=== PATIENT | female | born 1965 | race Caucasian/White ===

== ENCOUNTER → 2021-06-20 09:55 | Outpatient (CLI) | payer OTHER, SELFPAY ==
--- NOTE | 2021-06-20 10:02 | RAD_ITS ---
STUDY: X-RAY CHEST REASON FOR EXAM: Female, 56 years old. Technologist Notes [facility] up posterior chest wall on right side RALES R BASE -- COPY DR PARRA TECHNIQUE: XR Chest 2 Views COMPARISON: None FINDINGS: There is no demonstrated pleural abnormality. There is a right Port-A-Cath and/or mediport in place. The tip is in the superior vena cava. Diffuse sclerosis of the thoracic vertebral bodies. Expansile lesions visualized in the left ribs. These combined findings are concerning for metastatic disease. Normal size heart. Normal mediastinum and valeria. Normal visualized pulmonary arteries. There is atherosclerotic calcification of the aortic arch with tortuosity. There are diffuse degenerative changes of the visualized thoracic spine. There is degenerative osteoarthritis of the bilateral shoulders. There is no demonstrated abnormality of the visualized soft tissue structures of the upper abdomen. RAD/Chest PA and Lateral IMPRESSION: Diffuse sclerosis of the thoracic vertebral bodies. Expansile lesions visualized in the left ribs. These combined findings are concerning for metastatic bone disease. Electronically Signed: Jesus Lerner MD at 16:52 EST , Service support ,
== END ==
PROVIDERS: PCP Family Medicine; Referring Provider Family Medicine; Visit Provider Family Medicine
DX: R09.89 Other specified symptoms and signs involving the circulatory and respiratory systems (principal)
CPT/HCPCS: 71046

== ENCOUNTER → 2021-06-21 12:25 | Outpatient (CLI) | payer OTHER, SELFPAY ==
[2021-06-21 15:03] LABS: Absolute Lymphocyte Count 1.27 X10^3/uL (0.83-4.51); Absolute Neutrophil Count 3.6 X10^3/uL (2.0-7.7); Basophil# 0.01 X10^3/uL; Basophil% 0.2 % (0-1); Hematocrit 26.1 % (37-47); Hemoglobin 8.2 g/dL (12.0-15.0); Lymphocyte # 1.27 X10^3/ul (0.83-4.51); Mean Corp Hgb Conc 31.4 g/dL (32-36); Mean Corpuscular Hgb 28.8 pg (27.0-32.0); Mean Corpuscular Volume 91.6 fL (81-99); Mean Platelet Vol. 9.2 fl (6.2-12.0); Monocyte# 0.45 X10^3/uL; Monocyte% 8.2 % (0-10); NRBC Flagged by Analyzer 0.9 % (0-5); Neutrophil # 3.59 X10^3/uL (2.7-7.7); Neutrophil % 65.2 % (47-70); Platelet Count 122 K/mm3 (150-450); RBC Distribution Width CV 17.5 % (11.6-14.6); RBC Distribution Width SD 57.1 fl (35.1-43.9); RET-HE 33.1 pg (30-35); Red Blood Count 2.85 M/mm3 (4.2-5.4); Reticulocyte Count 4.21 % (0.5-1.5); White Blood Count 5.5 K/mm3 (4.4-11.0)
[2021-06-21 16:04] LABS: ALB/GLOB Ratio 0.5 RATIO (0.9-2.4); AST(SGOT) 33 U/L (15-37); Alanine Aminotransfer ALT/SGPT 20 U/L (13-56); Albumin, Serum 2.1 g/dL (3.2-5.0); Alkaline Phosphatase 138 U/L (45-117); Anion Gap 7 (5-15); BUN 15 mg/dL (7-18); BUN/Creat Ratio 18.5 RATIO (10-20); Calcium,Total 8.5 mg/dL (8.5-10.1); Chloride 102 mmol/L (98-107); Creatinine, Serum 0.81 mg/dL (0.55-1.02); EST Glomerular Filtration Rate 78 mL/min (>60); Est Glom Filt Rate - Afr Amer 94 mL/min (>60); Ferritin 1967 ng/mL (8-252); Free T3 0.8 pg/mL (2.18-3.98); Globulin 3.9 g/dL (2.2-4.2); Glucose 112 mg/dL (74-106); Iron Binding Capacity,Total 233 ug/dL (250-450); Potassium 4.5 mmol/L (3.5-5.1); Sodium Level 133 mmol/L (136-145); T4 Free Direct 1.12 ng/dL (0.76-1.46); Thyroid Stim Hormone (TSH) 1.59 uIU/mL (0.358-3.74)
[2021-06-23 10:51] LABS: Haptoglobin 424 mg/dL (33-346)
== END ==
PROVIDERS: PCP Family Medicine; Referring Provider Family Medicine; Visit Provider Family Medicine
DX: D64.9 Anemia, unspecified (principal); C50.919 Malignant neoplasm of unspecified site of unspecified female breast; E03.9 Hypothyroidism, unspecified; K29.00 Acute gastritis without bleeding
CPT/HCPCS: 36415; 80053; 82728; 82746; 83010; 83550; 84439; 84443; 84481; 85025; 85045

== ENCOUNTER → 2021-06-27 08:59 | Outpatient (CLI) | payer OTHER, SELFPAY | PROVIDERS: PCP Family Medicine; Visit Provider Family Medicine | DX: Z20.828 Contact with and (suspected) exposure to other viral communicable diseases (principal) | CPT/HCPCS: 87633; 87635; U0005; U0003 ==

== ENCOUNTER 2021-07-08 15:55 | Inpatient (IN) | payer OTHER, SELFPAY ==
[2021-07-08] VITALS (10 sets, daily range): BP systolic 88–142; BP diastolic 41–97; PULSE 84–109; RESP 7–20; TEMP 36.2–37.3; O2SAT 89–106; BMI 37.2; BMI 41.8
--- NOTE | 2021-07-08 17:00 | EKG12_ITS ---
Test Reason : SOB Blood Pressure : / mmHG Vent. Rate : 108 BPM Atrial Rate : 107 BPM P-R Int : 000 ms QRS Dur : 070 ms QT Int : 360 ms P-R-T Axes : 000 006 040 degrees QTc Int : 482 ms Somatic/Motion Artifact Sinus vs ectopic atrial rhythm Nonspecific ST and T wave abnormality Abnormal ECG Confirmed by AVILA GARCIA, BETTY ([id number]), television news video editor KELSEY PETERS ([id number]) on 07/09/2021 10:16:50 AM Referred By: EFRA Confirmed By:BETTY GRAMAJO MD
--- NOTE | 2021-07-08 17:00 | RAD_ITS ---
STUDY: X-RAY CHEST REASON FOR EXAM: Female, 56 years old. Technologist Notes PNEUMONIA FOR 2 WEEKS. INCREASING SOB. cough TECHNIQUE: XR Chest 1 View COMPARISON: 06.20.21 FINDINGS: There is no demonstrated pleural abnormality. There is bilateral infiltrate. There is a right Port-A-Cath and/or mediport in place. The tip is in the superior vena cava. Normal size heart. Normal mediastinum and valeria. Normal visualized pulmonary arteries. There is atherosclerotic calcification of the aortic arch with tortuosity. There are diffuse degenerative changes of the visualized thoracic spine. There is degenerative osteoarthritis of the bilateral shoulders. There is no demonstrated abnormality of the visualized soft tissue structures of the upper abdomen. RAD/Chest 1 View (Portable) IMPRESSION: Bilateral pneumonia. Electronically Signed: Jesus Lerner MD at 17:30 EST , Service support ,
--- NOTE | 2021-07-08 17:17 | CT_ITS ---
EXAM: CT ANGIOGRAPHY CHEST WITHOUT AND WITH INTRAVENOUS CONTRAST CLINICAL INDICATION: chest pain TECHNIQUE: Helically acquired angiography images were obtained of the chest without and with intravenous contrast. This CT exam was performed using one or more of the following dose reduction techniques: automated exposure control, adjustment of the mA and/or kV according to patient size, and/or use of iterative reconstruction technique. This report was created using [employer] report generation technology. MIP reconstructed images were created and reviewed. CONTRAST: IV 100mL [id number] COMPARISON: None. FINDINGS: PULMONARY ARTERIES: No demonstrated pulmonary embolism or arterial dissection. AORTA: Unremarkable. Normal in caliber. No evidence of dissection. GREAT VESSELS OF AORTIC ARCH: Unremarkable. Normal in caliber. No evidence of dissection. LUNGS AND PLEURAL SPACES: There is bilateral pneumonia. There are bilateral pleural effusions. No mass. HEART: Unremarkable. Heart size is normal. No pericardial effusion. No signs of right heart strain, ratio of right ventricle to left ventricle measures less than 1. MEDIASTINUM: Unremarkable. No mediastinal or hilar adenopathy. Esophagus is unremarkable. No hiatal hernia. THYROID: Unremarkable. No thyroid lesions. BONES/JOINTS: Lytic and sclerotic lesions throughout the thoracic vertebrae, ribs, and sternum. There are degenerative findings of the thoracic spine. TUBES, LINES AND DEVICES: There is a right Port-A-Cath and/or mediport in place. The tip is in the superior vena cava. CT/CTA Chest W/WO Contrast IMPRESSION: 1. Diffuse metastatic bone disease. 2. No demonstrated pulmonary embolism or arterial dissection. 3. There is bilateral pneumonia. 4. There are bilateral pleural effusions. Electronically Signed: Jesus Lerner MD at 18:37 EST , Service support ,
--- NOTE | 2021-07-08 17:18 | EDS_ITS ---
HPI History of Present Illness Chief Complaint: Shortness of Breath Narrative Narrative: 56-year-old female with history of metastatic breast cancer who is originally from [place]. She is established with Dr. Fox and Dr. Pearson in [place]. She is currently doing immunotherapy which they believe is not working. She is scheduled for a bone scan tomorrow. It was noted by her primary care physician that she had a slight cough last week and she was put on Omnicef and azithromycin after having a chest x-ray which showed pneumonia. She tested negative for COVID-19 with a PCR. Patient states at that point she really was not symptomatic. She denies any fevers or chills. She does states she has intermittent chest pain due to metastatic cancer in her ribs and her chest. She does have history of PE and is currently on 2.5 mg twice daily of Eliquis for this. She is on the low-dose because she has history of gastric ulcer and anemia with GI bleed. Patient denies any black or bloody stools. It is noted that her hemoglobin was slightly lower at 8.2 at 06/21/2021. Patient states that previously when she lived in [place] she was hospitalized about 3 weeks ago and had received multiple units of blood for this. She states she is had an upper endoscopy recently which showed that she did not have any more bleeding. She presents today because her daughter noticed she was hypoxic at home down into the 30s and then came up into the 90s and the highest noted pulse oximeter reading was 94. Patient does not wear home oxygen at home. She denies fever, chills, body aches, change in taste or smell. She does state that she has no history of cardiac disease but notes that she has dyspnea on exertion. She is orthopneic. She has lower extremity edema which is worsening. [facility] Medical History Breast cancer Breast cancer metastasized to bone Hypothyroid Home Medications lorazepam 1 mg PO DAILY 07/08/21 [History Last Taken Unknown] morphine 15 mg PO BID 07/08/21 [History Last Taken Unknown] ondansetron 8 mg PO PRN PRN 07/08/21 [History Last Taken Unknown] oxycodone 10 mg PO PRN PRN 07/08/21 [History Last Taken Unknown] Allergy/AdvReac Type Severity Reaction Status Date / Time meperidine [From Demerol] AdvReac Vomiting Verified 07/08/21 15:59 Social History Smoking Status: Never smoker ROS ROS ED Constitutional Constitutional ED: Denies chills or fever(s) Eyes Eyes: Denies change in vision ENT ENT ED: Denies rhinorrhea or sore throat Cardiovascular Cardiovascular: Reports chest pain and orthopnea Respiratory/Chest Respiratory/Chest: Reports dyspnea, dyspnea on exertion and orthopnea Gastrointestinal Gastrointestinal: Denies abdominal pain, nausea or vomiting Genitourinary Genitourinary ED: Denies dysuria or hematuria Integumentary Denies Abrasions or rash Neurologic Neurologic: Denies headache(s) or paresthesias Psychiatric Psychiatric: Denies anxiety or depression EXAM Physical Exam Const Vital Signs: 07/08/21 15:56 07/08/21 15:59 07/08/21 16:44 Temperature 97.2 F L Temperature Source Temporal Pulse Rate 107 H Respiratory Rate 18 20 H Respiratory Effort Short of Breath Labored Accessory Muscle Use Respiratory Depth Normal Respiratory Pattern Tachypnea Blood Pressure 130/97 H Blood Pressure Mean 108 Pulse Ox 89 97 99 Oxygen Delivery Method Room Air Nasal Cannula Nasal Cannula Oxygen Flow Rate (L/min) 2 07/08/21 17:00 07/08/21 17:56 07/08/21 18:00 Temperature 98.8 F 99.1 F 99.2 F H Temperature Source Temporal Temporal Temporal Pulse Rate 107 H 104 H Respiratory Rate 17 16 Respiratory Effort Respiratory Depth Respiratory Pattern Blood Pressure 88/41 L 133/71 H Blood Pressure Mean 56 91 Pulse Ox 100 106 98 Oxygen Delivery Method Nasal Cannula Room Air Nasal Cannula Oxygen Flow Rate (L/min) 07/08/21 20:07 07/08/21 20:31 Temperature 98.1 F 98.1 F Temperature Source Oral Oral Pulse Rate 84 84 Respiratory Rate 7 L 7 L Respiratory Effort Respiratory Depth Respiratory Pattern Blood Pressure 142/84 H 142/84 H Blood Pressure Mean 103 103 Pulse Ox 95 95 Oxygen Delivery Method Nasal Cannula Oxygen Flow Rate (L/min) Positive obese General Appearance ED: NAD and pallor Nutritional Appearance: obese HEENT Reports moist mucous membranes atraumatic Eyes PERRL and EOMs intact bilaterally Neck no lymphadenopathy and supple Resp normal respiratory effort and clear to auscultation bilaterally Cardio regular rate and regular rhythm GI non-tender and non-distended Palpation: soft Neuro oriented x3 and CN's II-XII intact bilaterally Sensorium / Orientation: alert Psych mental status grossly normal Thought Process: normal thought process Skin General Skin Exam: pallor; Negative for jaundice Rashes: no rashes MDM MDM MDM Narrative Medical decision making narrative: Patient presenting with history of pneumonia treated outpatient with azithromycin and cefdinir. She is not had any fevers but she is short of breath. She admits to lower extremity edema as well. She denies history of congestive heart failure. Patient is hypoxic on arrival and is requiring oxygen.her daughter does admit that her pulse ox was around 30 at home but then after letting it rest it did, however with ambulation her pulse ox does drop into the 80s. Patient is already been tested for COVID-19 with a PCR which was negative. She is not having fever, chills, body aches. She is having generalized weakness. Patient does have a significant history of pulmonary emboli and was on Eliquis until she had a GI bleed due to a gastric ulcer. She is told that on her last exam this had improved. She is currently on Eliquis 2.5 mg p.o. twice daily which is a low dose. Her chest x-ray on my interpretation shows bilateral pneumonia. The radiologist does agree. She again tested negative for COVID-19. Sensitivity troponin is 26. BNP is slightly elevated at 128. Lactic acid 2.3. Patient did have one isolated low blood pressure at 88/41 and for this reason she was given a liter of IV fluids. All of her other blood pressures have been normal. It is possible this could be due to her home narcotics. Again this was one isolated blood pressure. I did obtain a CTA of the chest that she is having some chest discomfort which is likely due to metastatic disease but she is also on a low-dose of Eliquis and a CT of the chest shows pneumonia without other PEs or dissection. Patient's hemoglobin is 8.1 which is not significantly changed from her previous on record however she states that her hemoglobin was 10 when she was in [place] 3 weeks ago when she was previously admitted. Patient was typed and screened. Since her blood has not significantly changed I feel this can be monitored inpatient. Since she has pneumonia and recent hospitalization she is given vancomycin and Zosyn. Patient was also found to have a urinary tract infection which would be covered by these antibiotics. Given the above findings I think the patient needs to be admitted to the hospital. I did discuss this with the hospitalist. Impression: 1. UTI 2. Bilateral pneumonia 3. Hypoxic respiratory failure 4. GI bleed 5. Blood loss anemia Lab Data Labs: Laboratory Results - last 24 hr 07/08/21 07/08/21 07/08/21 16:05 16:05 16:05 WBC 7.9 RBC 2.79 L Hgb 8.1 L Hct 26.2 L MCV 93.9 MCH 29.0 MCHC 30.9 L RDW Std Deviation 62.7 H RDW Coeff of Naveed 19.0 H Plt Count 132 L MPV 10.0 Immature Gran % (Auto) 4.300 H Neut % (Auto) 68.4 Lymph % (Auto) 19.1 [place] % (Auto) 7.8 Eos % (Auto) 0.0 Baso % (Auto) 0.4 Absolute Neuts (auto) 5.4 Absolute Lymphs (auto) 1.50 Nucleated RBC % 3.8 PT 15.7 H INR 1.3 APTT 37.4 H Sodium 134 L Potassium 4.2 Chloride 98 Carbon Dioxide 25.0 Anion Gap 11 BUN 18 Creatinine 0.86 Estim Creat Clear Calc 73.68 Est GFR (MDRD) Af Amer 88 Est GFR (MDRD) Non-Af 73 BUN/Creatinine Ratio 20.9 H Glucose 99 Lactic Acid Calcium 9.3 Total Bilirubin 0.30 AST 27 ALT 13 Alkaline Phosphatase 144 H Troponin I High Sens 26 B-Natriuretic Peptide Total Protein 6.2 L Albumin 1.6 L Globulin 4.6 H Albumin/Globulin Ratio 0.3 L Urine Color Urine Clarity Urine pH Ur Specific [place] Urine Protein Urine Glucose (UA) Urine Ketones Urine Occult Blood Urine Nitrite Urine Bilirubin Urine Urobilinogen Ur Leukocyte Esterase Urine RBC Urine WBC Ur Squamous Epith Cells Urine Bacteria Urine Mucus COVID-19 (DARCIE) Blood Type Antibody Screen 07/08/21 07/08/21 07/08/21 16:05 17:25 17:29 WBC RBC Hgb Hct MCV MCH MCHC RDW Std Deviation RDW Coeff of Naveed Plt Count MPV Immature Gran % (Auto) Neut % (Auto) Lymph % (Auto) [place] % (Auto) Eos % (Auto) Baso % (Auto) Absolute Neuts (auto) Absolute Lymphs (auto) Nucleated RBC % PT INR APTT Sodium Potassium Chloride Carbon Dioxide Anion Gap BUN Creatinine Estim Creat Clear Calc Est GFR (MDRD) Af Amer Est GFR (MDRD) Non-Af BUN/Creatinine Ratio Glucose Lactic Acid 2.3 H* Calcium Total Bilirubin AST ALT Alkaline Phosphatase Troponin I High Sens B-Natriuretic Peptide 128.3 H Total Protein Albumin Globulin Albumin/Globulin Ratio Urine Color Urine Clarity Urine pH Ur Specific [place] Urine Protein Urine Glucose (UA) Urine Ketones Urine Occult Blood Urine Nitrite Urine Bilirubin Urine Urobilinogen Ur Leukocyte Esterase Urine RBC Urine WBC Ur Squamous Epith Cells Urine Bacteria Urine Mucus COVID-19 (DARCIE) Not Detected Blood Type Antibody Screen 07/08/21 07/08/21 17:40 20:11 WBC RBC Hgb Hct MCV MCH MCHC RDW Std Deviation RDW Coeff of Naveed Plt Count MPV Immature Gran % (Auto) Neut % (Auto) Lymph % (Auto) [place] % (Auto) Eos % (Auto) Baso % (Auto) Absolute Neuts (auto) Absolute Lymphs (auto) Nucleated RBC % PT INR APTT Sodium Potassium Chloride Carbon Dioxide Anion Gap BUN Creatinine Estim Creat Clear Calc Est GFR (MDRD) Af Amer Est GFR (MDRD) Non-Af BUN/Creatinine Ratio Glucose Lactic Acid Calcium Total Bilirubin AST ALT Alkaline Phosphatase Troponin I High Sens B-Natriuretic Peptide Total Protein Albumin Globulin Albumin/Globulin Ratio Urine Color Yellow Urine Clarity Sl. Cloudy Urine pH 6.0 Ur Specific [place] 1.015 Urine Protein Negative Urine Glucose (UA) Normal Urine Ketones Negative Urine Occult Blood Negative Urine Nitrite Positive H Urine Bilirubin Negative Urine Urobilinogen Normal Ur Leukocyte Esterase 25 H Urine RBC 0 SEEN Urine WBC 0-5 SEEN Ur Squamous Epith Cells 0-5 SEEN Urine Bacteria 3+ Urine Mucus 0 SEEN COVID-19 (DARCIE) Blood Type A POSITIVE Antibody Screen NEGATIVE Radiography Diagnostic Testing: Clinical Impression(s) from Imaging Studies Chest X-Ray 07/08/21 17:00 IMPRESSION: Bilateral pneumonia. Electronically Signed: Jesus Lerner MD at 17:30 EST , Service support , Chest CTA 07/08/21 17:17 IMPRESSION: 1. Diffuse metastatic bone disease. 2. No demonstrated pulmonary embolism or arterial dissection. 3. There is bilateral pneumonia. 4. There are bilateral pleural effusions. Electronically Signed: Jesus Lernre MD at 18:37 EST , Service support , Discharge Plan Triage Chief Complaint: Shortness of Breath ED Provider: Den Doll Dx/Rx/DC Orders Primary Care Provider: Bhavin Fxo
[2021-07-08 17:31] LABS: ALB/GLOB Ratio 0.3 RATIO (0.9-2.4); AST(SGOT) 27 U/L (15-37); Alanine Aminotransfer ALT/SGPT 13 U/L (13-56); Albumin, Serum 1.6 g/dL (3.2-5.0); Alkaline Phosphatase 144 U/L (45-117); Anion Gap 11 (5-15); BUN 18 mg/dL (7-18); BUN/Creat Ratio 20.9 RATIO (10-20); Calcium,Total 9.3 mg/dL (8.5-10.1); Chloride 98 mmol/L (98-107); Creatinine, Serum 0.86 mg/dL (0.55-1.02); EST Glomerular Filtration Rate 73 mL/min (>60); Est Glom Filt Rate - Afr Amer 88 mL/min (>60); Estimated Creatinine Clearance 73.68 ml/min; Globulin 4.6 g/dL (2.2-4.2); Glucose 99 mg/dL (74-106); Potassium 4.2 mmol/L (3.5-5.1); Protein, Total 6.2 g/dL (6.4-8.2); Sodium Level 134 mmol/L (136-145); Troponin-I HS 26 pg/mL (3.0-54.0)
[2021-07-08 17:32] LABS: Absolute Neutrophil Count 5.4 X10^3/uL (2.0-7.7); Basophil# 0.03 X10^3/uL; Basophil% 0.4 % (0-1); Hematocrit 26.2 % (37-47); Hemoglobin 8.1 g/dL (12.0-15.0); Lymphocyte % 19.1 % (19-41); Mean Corp Hgb Conc 30.9 g/dL (32-36); Mean Corpuscular Volume 93.9 fL (81-99); Monocyte# 0.61 X10^3/uL; Monocyte% 7.8 % (0-10); NRBC Flagged by Analyzer 3.8 % (0-5); Neutrophil # 5.38 X10^3/uL (2.7-7.7); Neutrophil % 68.4 % (47-70); Platelet Count 132 K/mm3 (150-450); RBC Distribution Width SD 62.7 fl (35.1-43.9); Red Blood Count 2.79 M/mm3 (4.2-5.4); White Blood Count 7.9 K/mm3 (4.4-11.0)
[2021-07-08 17:42] LABS: International Normalized Ratio 1.3; Prothrombin Time (Protime)PT. 15.7 SECONDS (11.7-14.9)
[2021-07-08 17:43] LABS: Partial Thromboplast Time 37.4 Seconds (24.1-36.2)
[2021-07-08] MEDS: proMETHazine 25 MG Tablet PO (17:51)
[2021-07-08] MEDS: 0.9% Normal Saline 1,000 ML 999 ML IV (17:54)
[2021-07-08 18:03] LABS: Lactic Acid 2.3 mmol/L (0.4-1.9)
[2021-07-08 18:32] LABS: BNP,B-Type NATRIURETIC PEPTIDE 128.3 pg/mL (0-100)
--- NOTE | 2021-07-08 20:15 | PCM.HP.STD ---
HPI - General HPI Narrative BERTA GUERRA, is a 56 F who presents to the emergency room with shortness of breath. Patient has a significant past medical history of breast cancer with meta stasis to the bone and has a bone scan pending tomorrow as an outpatient prior to her arrival in the emergency room. The patient has been on Eliquis 2.5 mg twice daily due to history of pulmonary embolism but has had complications with gastrointestinal bleeding due to gastric ulcer. Hemoccult stool is positive here in the emergency room however after 2 hemoglobin checks her hemoglobin has been stable at 8.1. The patient required oxygen at 3 L to maintain her oxygenation greater than 90% and she continues to feel tired despite receiving oxygen. CT scan of the chest reveals a pneumonia. Patient failed outpatient therapy using azithromycin and cefdinir and was started on vancomycin and Zosyn. She had a recent Covid test that was negative and a new one that is pending but denies loss of taste or smell or chronic cough. She will be admitted for hospital-acquired pneumonia since she was hospitalized several weeks ago in [place] and failed outpatient antibiotic therapy for community-acquired pneumonia. She will be monitored for gastrointestinal bleed as well. [facility] Medical History Breast cancer Breast cancer metastasized to bone Hypothyroid Home Medications lorazepam 1 mg PO DAILY 07/08/21 [History Last Taken Unknown] morphine 15 mg PO BID 07/08/21 [History Last Taken Unknown] ondansetron 8 mg PO PRN PRN 07/08/21 [History Last Taken Unknown] oxycodone 10 mg PO PRN PRN 07/08/21 [History Last Taken Unknown] Allergy/AdvReac Type Severity Reaction Status Date / Time meperidine [From Demerol] AdvReac Vomiting Verified 07/08/21 15:59 Social History Smoking Status: Never smoker ROS Constitutional Constitutional: Reports fatigue; Denies chills or fever(s) ENT HEENT: Denies abnormal hearing Cardiovascular Cardiovascular: Denies chest pain Respiratory/Chest Respiratory/Chest: Denies cough Gastrointestinal Gastrointestinal: Denies abdominal pain Genitourinary Genitourinary: Denies dysuria Musculoskeletal Musculoskeletal: Denies back pain Integumentary Integumentary: Reports dry skin Neurologic Neurologic: Reports abnormal gait Vital Signs Vital Signs Vital Signs: 07/08/21 15:56 07/08/21 15:59 07/08/21 16:44 Temperature 97.2 F L Temperature Source Temporal Pulse Rate 107 H Respiratory Rate 18 20 H Respiratory Effort Short of Breath Labored Accessory Muscle Use Respiratory Depth Normal Respiratory Pattern Tachypnea Blood Pressure 130/97 H Blood Pressure Mean 108 Pulse Ox 89 97 99 Oxygen Delivery Method Room Air Nasal Cannula Nasal Cannula Oxygen Flow Rate (L/min) 2 07/08/21 17:00 07/08/21 17:56 07/08/21 18:00 Temperature 98.8 F 99.1 F 99.2 F H Temperature Source Temporal Temporal Temporal Pulse Rate 107 H 104 H Respiratory Rate 17 16 Respiratory Effort Respiratory Depth Respiratory Pattern Blood Pressure 88/41 L 133/71 H Blood Pressure Mean 56 91 Pulse Ox 100 106 98 Oxygen Delivery Method Nasal Cannula Room Air Nasal Cannula Oxygen Flow Rate (L/min) 07/08/21 20:07 Temperature 98.1 F Temperature Source Oral Pulse Rate 84 Respiratory Rate 7 L Respiratory Effort Respiratory Depth Respiratory Pattern Blood Pressure 142/84 H Blood Pressure Mean 103 Pulse Ox 95 Oxygen Delivery Method Oxygen Flow Rate (L/min) Weight Weight: 245 lb Body Mass Index (BMI) 37.2 Physical Exam Const oriented x3 Constitutional Narrative: obese General Appearance: cooperative HEENT normocephalic and head/scalp atraumatic Eyes PERRL Neck supple Resp Auscultation: rhonchi left upper Cardio regular rate, regular rhythm, S1 normal heart sound and S2 normal heart sound GI normal to inspection, nondistended, normoactive bowel sounds GI Narrative: obese Extremity normal capillary refill Skin General Skin Exam: turgor normal Neuro CN's II-XII intact bilaterally Psych Appearance: appropriate Results Lab / Micro Data Result Diagrams: 07/08/21 16:05 07/08/21 16:05 Labs: Laboratory Results - last 24 hr 07/08/21 16:05: WBC 7.9, RBC 2.79 L, Hgb 8.1 L, Hct 26.2 L, MCV 93.9, MCH 29.0, MCHC 30.9 L, RDW Std Deviation 62.7 H, RDW Coeff of Naveed 19.0 H, Plt Count 132 L, MPV 10.0, Immature Gran % (Auto) 4.300 H, Neut % (Auto) 68.4, Lymph % (Auto) 19.1, [place] % (Auto) 7.8, Eos % (Auto) 0.0, Baso % (Auto) 0.4, Absolute Neuts (auto) 5.4, Absolute Lymphs (auto) 1.50, Nucleated RBC % 3.8 07/08/21 16:05: PT 15.7 H, INR 1.3, APTT 37.4 H 07/08/21 16:05: Sodium 134 L, Potassium 4.2, Chloride 98, Carbon Dioxide 25.0, Anion Gap 11, BUN 18, Creatinine 0.86, Estim Creat Clear Calc 73.68, Est GFR (MDRD) Af Amer 88, Est GFR (MDRD) Non-Af 73, BUN/Creatinine Ratio 20.9 H, Glucose 99, Calcium 9.3, Total Bilirubin 0.30, AST 27, ALT 13, Alkaline Phosphatase 144 H, Troponin I High Sens 26, Total Protein 6.2 L, Albumin 1.6 L, Globulin 4.6 H, Albumin/Globulin Ratio 0.3 L 07/08/21 16:05: B-Natriuretic Peptide 128.3 H 07/08/21 17:25: Lactic Acid 2.3 H* 07/08/21 17:40: Blood Type A POSITIVE, Antibody Screen NEGATIVE Micro: Microbiology 07/08/21 17:35 Stool Stool Occult Blood (LADARIUS) - Final Occult Blood Positive Radiology Impression Chest X-Ray 07/08/21 17:00 IMPRESSION: Bilateral pneumonia. Electronically Signed: Jesus Lerner MD at 17:30 EST , Service support , Chest CTA 07/08/21 17:17 IMPRESSION: 1. Diffuse metastatic bone disease. 2. No demonstrated pulmonary embolism or arterial dissection. 3. There is bilateral pneumonia. 4. There are bilateral pleural effusions. Electronically Signed: Jesus Lerner MD at 18:37 EST , Service support , Assessment & Plan Assessment/Plan (1) Breast cancer: (2) GIB (gastrointestinal bleeding): (3) Hospital-acquired pneumonia: (4) Obesity: (5) History of pulmonary embolism: PLAN: 1. Hospital-acquired pneumonia?admit patient to medical surgical floor, continue vancomycin and Zosyn, oxygen per protocol, DuoNeb inhalers every 4 hours as needed repeat CBC BMP in the morning 2. Gastrointestinal bleed history of being on chronic anticoagulation for history of pulmonary emboli, will hold Eliquis and monitor H&H 3. Breast cancer?patient was to have a bone scan as an outpatient tomorrow that will need to be rescheduled, and her oncology will need to be notified of this as well as rescheduling her chemotherapy 4. DVT prophylaxis?due to GI bleed will use SCDs and hold her Eliquis Charges/Coding Visit Charges Inpatient E&M: 75029 Init Hosp L3
[2021-07-08 20:21] LABS: Mucous, Urine 0 SEEN /hpf (<or=2+); Red Blood Cells-Urine 0 SEEN /hpf (0-5)
[2021-07-08 20:24] LABS: Color, Urine Yellow (Yellow); Glucose, Dipstick Normal (Normal); Ketone-Dipstick Negative (Negative); Leukocyte Esterase-Dipstick 25 /ul (Negative); Nitrite-Dipstick Positive (Negative); Occult Blood-Urine Negative /ul (Negative); Protein-Dipstick Negative (Negative); Specific Gravity, Urine 1.015 (1.002-1.030); Urine Bilirubin Dipstick Negative (Negative); Urine Clarity Sl. Cloudy (Clear); Urine Urobilinogen Normal (Normal)
[2021-07-08 20:31] LABS: Bacteria 3+ /hpf (None Seen); Squamous Epithelial Cells - UA 0-5 SEEN /hpf (5-10); White Blood Cells 0-5 SEEN /hpf (0-5)
[2021-07-08 21:00] LABS: Hematocrit 23.6 % (37-47); Hemoglobin 7.2 g/dL (12.0-15.0)
[2021-07-08 21:32] LABS: Reflex Lactate? Y
--- NOTE | 2021-07-08 21:33 | PCS.PANDOC ---
PANDEMIC DOCUMENTATION INITIATED: Date: 03/25/2021 Time: 190
[2021-07-09] VITALS (21 sets, daily range): BP systolic 96–126; BP diastolic 54–89; PULSE 78–111; RESP 16–20; TEMP 36.1–37; O2SAT 92–100
[2021-07-09 00:47] LABS: Hematocrit 20.7 % (37-47); Hemoglobin 6.4 g/dL (12.0-15.0)
[2021-07-09 01:10] LABS: Lactic Acid 1.1 mmol/L (0.4-1.9)
[2021-07-09] MEDS: Ondansetron 8 MG Tablet PO (03:41)
[2021-07-09] MEDS: 0.9% Saline Lock 10 ML Syringe IV ×4 (03:48→12:06)
[2021-07-09] MEDS: Furosemide 20 MG/2 ML VIAL IV (05:46)
[2021-07-09] MEDS: Ipratropium/Albuterol Sulfate 3 ML AMPUL.NEB INHALATION (07:20)
[2021-07-09] MEDS: LORazepam 1 MG Tablet PO (09:28)
[2021-07-09 09:34] LABS: Absolute Lymphocyte Count 1.19 X10^3/uL (0.83-4.51); Absolute Neutrophil Count 5.4 X10^3/uL (2.0-7.7); Basophil# 0.03 X10^3/uL; Basophil% 0.4 % (0-1); Hematocrit 29.8 % (37-47); Hemoglobin 9.2 g/dL (12.0-15.0); Lymphocyte # 1.19 X10^3/ul (0.83-4.51); Mean Corp Hgb Conc 30.9 g/dL (32-36); Mean Corpuscular Volume 90.9 fL (81-99); Mean Platelet Vol. 9.5 fl (6.2-12.0); Monocyte# 0.65 X10^3/uL; Monocyte% 8.7 % (0-10); NRBC Flagged by Analyzer 2.3 % (0-5); Neutrophil # 5.35 X10^3/uL (2.7-7.7); Neutrophil % 72.1 % (47-70); Platelet Count 100 K/mm3 (150-450); Red Blood Count 3.28 M/mm3 (4.2-5.4); White Blood Count 7.4 K/mm3 (4.4-11.0)
[2021-07-09 10:20] LABS: Anion Gap 13 (5-15); BUN 18 mg/dL (7-18); BUN/Creat Ratio 25.8 RATIO (10-20); Calcium,Total 8.2 mg/dL (8.5-10.1); Chloride 101 mmol/L (98-107); EST Glomerular Filtration Rate 92 mL/min (>60); Est Glom Filt Rate - Afr Amer 111 mL/min (>60); Estimated Creatinine Clearance 90.53 ml/min; Glucose 107 mg/dL (74-106); Potassium 3.3 mmol/L (3.5-5.1); Sodium Level 137 mmol/L (136-145)
--- NOTE | 2021-07-09 10:55 | CASEMGMT ---
RN ANJU Face to Face with patient for initial transition planning/care coordination assessment. RN CM introduced self and role at [facility]. Patient lying in bed, alert and oriented, daughter at bedside. Patient willing to participate in assessment and is able to answer all questions appropriately. Care providers, pharmacy, and demographics verified. Patient wishes to discharge home with resumption of HHC through [facility]. Patient states she has no further needs or concerns at this time. CM to follow for discharge planning needs that may arise. PCP: Bhavin Fox Specialists: Scott, oncologist Preferred Pharmacy: [facility], [facility] retail at discharge. Insurance: [employer] Prescription Benefit: yes Living Will/HPOA: daughter Rosi Malhotra LNOK: daughter Living Arrangements:Patient lives with daughter in a 2 story home with bed and bath on first floor. Ramp to enter the home. Daughter assists with ADLs at home. Transportation: Daughter DME/HHC: Patient states she has shower chair, BSC, raised toilet, grab bars, walker, wheelchair, hospital bed, and cpap at home. Patient is currently active with [facility] for SN and PT. Patient is also active with palliative care. Disposition Plan: Patient to discharge home with resumption of HHC, family support, and follow-up plans in place. Lorenza POLLARD, RN, CM
[2021-07-09] MEDS: Metoclopramide 10 MG/2 ML Vial 5 MG IV (11:33)
[2021-07-09] MEDS: DiphenhydrAMINE 50 MG/ML Syringe 25 MG IV ×2 (12:06→20:44)
[2021-07-09] MEDS: levoFLOXacin IV 750 MG/150 ML BAG 100 MG IV (12:49)
--- NOTE | 2021-07-09 13:32 | PN.HOSP_ITS ---
Subjective Subjective Patient overnight since admission with notable hemoglobin increase presenting with hemoglobin 8.1, dropping to 6.4 with positive guaiac administered 2 unit PRBC with repeat hemoglobin following 9.2. Patient notes since admission her dyspnea has lessened especially following blood and oxygen administration. She denies any significant cough. Patient does admit that she has a history of a gastric ulcer with bleed prior. She does note mild abdominal cramping but no nausea, emesis, diarrhea associated with her current presentation. Objective Data Objective Data Vital Signs: Vital Signs Temp Pulse Resp BP Pulse Ox 97.9 F 102 H 18 106/66 98 07/09/21 11:42 07/09/21 11:42 07/09/21 11:42 07/09/21 11:42 07/09/21 11:42 Oxygen Flow Rate (L/min) 2 Oxygen Delivery Method Nasal Cannula Weight: 274 lb 14.663 oz Body Mass Index (BMI) 41.8 Intake & Output: Intake and Output for Last 24 Hours 07/07/21 07/08/21 07/09/21 23:59 23:59 23:59 Intake Total 1290 / 1290 1195 / 1195 Output Total 450 / 450 Balance 1290 / 1290 745 / 745 Lab / Micro Data Result Diagrams: 07/09/21 09:25 07/09/21 09:25 Labs: Laboratory Results - last 24 hr 07/08/21 16:05: WBC 7.9, RBC 2.79 L, Hgb 8.1 L, Hct 26.2 L, MCV 93.9, MCH 29.0, MCHC 30.9 L, RDW Std Deviation 62.7 H, RDW Coeff of Naveed 19.0 H, Plt Count 132 L, MPV 10.0, Immature Gran % (Auto) 4.300 H, Neut % (Auto) 68.4, Lymph % (Auto) 19.1, Delta % (Auto) 7.8, Eos % (Auto) 0.0, Baso % (Auto) 0.4, Absolute Neuts (auto) 5.4, Absolute Lymphs (auto) 1.50, Nucleated RBC % 3.8 07/08/21 16:05: PT 15.7 H, INR 1.3, APTT 37.4 H 07/08/21 16:05: Sodium 134 L, Potassium 4.2, Chloride 98, Carbon Dioxide 25.0, Anion Gap 11, BUN 18, Creatinine 0.86, Estim Creat Clear Calc 73.68, Est GFR (MDRD) Af Amer 88, Est GFR (MDRD) Non-Af 73, BUN/Creatinine Ratio 20.9 H, Glucose 99, Calcium 9.3, Total Bilirubin 0.30, AST 27, ALT 13, Alkaline Phosphatase 144 H, Troponin I High Sens 26, Total Protein 6.2 L, Albumin 1.6 L, Globulin 4.6 H, Albumin/Globulin Ratio 0.3 L 07/08/21 16:05: B-Natriuretic Peptide 128.3 H 07/08/21 17:25: Lactic Acid 2.3 H* 07/08/21 17:29: COVID-19 (DARCIE) Not Detected 07/08/21 17:40: Blood Type A POSITIVE, Antibody Screen NEGATIVE 07/08/21 17:40: Crossmatch See Detail 07/08/21 17:40: Crossmatch See Detail 07/08/21 20:11: Urine Color Yellow, Urine Clarity Sl. Cloudy, Urine pH 6.0, Ur Specific Turner 1.015, Urine Protein Negative, Urine Glucose (UA) Normal, Urine Ketones Negative, Urine Occult Blood Negative, Urine Nitrite Positive H, Urine Bilirubin Negative, Urine Urobilinogen Normal, Ur Leukocyte Esterase 25 H, Urine RBC 0 SEEN, Urine WBC 0-5 SEEN, Ur Squamous Epith Cells 0-5 SEEN, Urine Bacteria 3+, Urine Mucus 0 SEEN 07/08/21 20:50: Hgb 7.2 L, Hct 23.6 L 07/08/21 23:00: Lactic Acid Cancelled 07/09/21 00:28: Hgb 6.4 L, Hct 20.7 L 07/09/21 00:28: Lactic Acid 1.1 07/09/21 09:25: WBC 7.4, RBC 3.28 L, Hgb 9.2 L, Hct 29.8 L, MCV 90.9, MCH 28.0, MCHC 30.9 L, RDW Std Deviation 64.0 H, RDW Coeff of Naveed 20.0 H, Plt Count 100 L, MPV 9.5, Immature Gran % (Auto) 2.800 H, Neut % (Auto) 72.1 H, Lymph % (Auto) 16.0 L, Delta % (Auto) 8.7, Eos % (Auto) 0.0, Baso % (Auto) 0.4, Absolute Neuts (auto) 5.4, Absolute Lymphs (auto) 1.19, Nucleated RBC % 2.3 07/09/21 09:25: Sodium 137, Potassium 3.3 L, Chloride 101, Carbon Dioxide 23.0, Anion Gap 13, BUN 18, Creatinine 0.70, Estim Creat Clear Calc 90.53, Est GFR (MDRD) Af Amer 111, Est GFR (MDRD) Non-Af 92, BUN/Creatinine Ratio 25.8 H, Glucose 107 H, Calcium 8.2 L Micro: Microbiology 07/09/21 12:50 Urine, Random Legionella Antigen - Final 07/09/21 12:50 Urine, Random Streptococcus pneumoniae Antigen (M - Final 07/08/21 20:11 Urine, Clean Catch Urine 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 Electronically Signed: Jesus Lerner MD at 17:30 EST , Service support , Chest CTA 07/08/21 17:17 IMPRESSION: 1. Diffuse metastatic bone disease. 2. No demonstrated pulmonary embolism or arterial dissection. 3. There is bilateral pneumonia. 4. There are bilateral pleural effusions. Electronically Signed: Jesus Lerner MD at 18:37 EST , Service support , Physical Exam Narrative Physical Examination: General: Awake, alert, oriented x 3 and cooperative, seated upright in PCU bed in no apparent distress, fatigued appearing. Skin: Normal color, normal turgor, no icterus, no cyanosis. HEENT: AT/NC, EOMI, PERRLA, mildly dry MM. Lungs: Very distant breath sounds, bilateral bases decreased, mildly coarse and rhonchorous, decreased effort, no wheezing. Heart: Regular rate and rhythm; no gallop, rub audible. Abdomen: Soft, morbidly obese, NTTP, difficult to assess distention given habitus, distant hyperactive bowel sounds. Extremities: No cyanosis, no clubbing, chronic bilateral lower extremity edema, not markedly pitting, right greater than left which is chronic and unchanged. Neurological: Patient awake, alert, oriented as noted, cognitive function intact; pupils equally reactive to light and accommodation, cranial nerves II- XII grossly normal, moving all 4 extremities, no focal deficits, strength moderately to severely global decrease secondary to acute presentation and underlying metastatic cancer history. Psychiatric: Affect appears fatigued, flat, no acute evidence of depressive or anxiety feelings. Assessment & Plan Assessment/Plan (1) GIB (gastrointestinal bleeding): QUALIFIERS: GI bleed type/associated pathology: unspecified gastrointestinal hemorrhage type Qualified Code(s): K92.2 - Gastrointestinal hemorrhage, unspecified (2) Hospital-acquired pneumonia: PLAN: The patient is a 56 y/o F w/ PMHx: Metastatic breast cancer to bone, Hypothyroidism, Morbid Obesity, Hx VTE w/ PE, Anxiety and Depression, recent outpatient treatment for PNA with cefdinir and azithromycin with outpatient CXR w/ PNA and cough with hypoxia with exertional dyspnea. 1. Acute GI Bleed w/ resultant Acute Blood Loss Anemia on Chronic with history of prior gastric ulcer: Admission Hgb 8.1, admitted to PCU, maintain on digestive fluids, patient's anticoagulant therapy with Eliquis discontinued, patient was not reversed upon admission, patient ministered 2 unit PRBC administration with most recent repeat hemoglobin 9.2, will transition to n.p.o. status, initiate on IV PPI, closely monitor patient chronic pain regimen and if any concerns for further hypotension may necessitate temporary hold with as needed breakthrough IV fentanyl, Dr. Patel gastroenterology consulted and planned upper endoscopy today. Will discuss with gastroenterology potential ti meline for resumption of patient anticoagulant therapy given history of pulmonary emboli in the setting of cancer, high risk. #2. HCAP Pneumonia: CTPA with diffuse evidence of metastatic bone disease, no demonstrated PE or dissection, bilateral pneumonia with bilateral pleural effusions noted, treated outpatient with cefdinir and azithromycin, initially admitted and treated with IV Zosyn and IV vancomycin which was eventually discontinued however MRSA screen was performed and noted to be positive therefore IV vancomycin restarted, patient with some concern for facial swelling therefore IV Zosyn was discontinued as this was the only agent patient was on at the time and transition to IV Levaquin without further report although lower suspicion for an actual drug reaction, do suspect facial mild swelling secondary to recent volume administration with PRBC administrations and IV fluids, res piratory viral panel requested, sputum culture requested, urine antigens requested. PT/OT, case management consultations for discharge planning #3. History of VTE with pulmonary emboli: Patient with history of pulmonary emboli on Eliquis therapy, stopped secondary to #1, CTPA upon presentation with no obvious continued pulmonary emboli evident; however, given patient metastatic cancer history she remains at continued risk for recurrent emboli therefore once #1 resolved will need timeline for resumption. #4. Metastatic breast cancer with metastases to bone: Patient notes outpatient planned upcoming bone scan, following with oncology, currently on immunotherapy, we will continue patient home oxycodone and long-acting morphine regimen however discussed at length potential need for hold if patient was hypotensive given acute presentation #1 with as needed breakthrough IV fentanyl if necessary. Mag and Phos requested. #5. Anxiety and depression: We will continue patient home sertraline and low- dose Ativan regimen with hold if BP significantly decreased. #6. Morbid Obesity: Weight loss and lifestyle changes encouraged. #7. Hypothyroidism: Continue home synthroid regimen, TSH pending. #8. GERD: We will maintain on IV PPI as noted above. #9. DVT prophylaxis: SCDs, holding patient home Eliquis regimen as noted above #1. #10. CODE STATUS: DNR CCA, no intubation status. Charges/Coding Visit Charges Inpatient E&M: 67221 [facility] Hosp L3
[2021-07-09] MEDS: Gabapentin 100 MG Capsule 200 MG PO ×2 (14:18→20:31)
[2021-07-09] MEDS: Levothyroxine 75 MCG Tablet PO (14:18)
[2021-07-09 14:45] LABS: M R Staph aureus DNA By PCR POSITIVE (Negative)
[2021-07-09 14:46] LABS: Probe Check PASS
--- NOTE | 2021-07-09 17:28 | EX.PCM.CON.G ---
HPI Consult Data Date of Consult: 07/09/21 HPI Narrative HPI Narrative: BRETA GUERRA, is a 56 F who presented to the ED with worsening shortness of breath. She has an unfortunate past medical history of metastatic breast cancer that was originally diagnosed back in 2002. She underwent mastectomy chemotherapy radiation and was placed on tamoxifen therapy. She went off the tamoxifen in 2012. Unfortunately had a recurrence of breast cancer and was placed on immunotherapy. She failed immunotherapy and is currently not being treated. She was diagnosed with bilateral pulmonary embolism and was placed on Eliquis therapy. However while she was in [place] she had a severe upper GI bleed. She was treated endoscopically with hemospray. On repeat endoscopy there was extensive ulcerations seen in the distal part of the stomach. She says that the biopsies did not show any signs of metastatic cancer. When she came back into the hospital however her hemoglobin had dropped down and she had another GI bleed. She also because she was short of breath had a CT scan of the chest and it revealed a bilateral pneumonia. She is on vancomycin and Zosyn therapy. . [facility] Medical History Breast cancer Breast cancer metastasized to bone Hypothyroid Home Medications lorazepam 1 mg PO BID PRN 07/08/21 [History Last Taken Unknown] morphine 30 mg PO BID 07/08/21 [History Last Taken Unknown] ondansetron 8 mg PO Q6H PRN PRN 07/08/21 [History Last Taken Unknown] oxycodone 5 mg PO Q4H PRN PRN 07/08/21 [History Last Taken Unknown] apixaban [Eliquis] 2.5 mg PO BID 07/09/21 [History Last Taken Unknown] folic acid 1 mg PO DAILY 07/09/21 [History Last Taken Unknown] gabapentin 200 mg PO TID 07/09/21 [History Last Taken Unknown] levothyroxine 75 mcg PO DAILY 07/09/21 [History Last Taken Unknown] melatonin 10 mg PO QHS 07/09/21 [History Last Taken Unknown] omeprazole 20 mg PO DAILY 07/09/21 [History Last Taken Unknown] prednisone 10 mg PO DAILY 07/09/21 [History Last Taken Unknown] sertraline [Zoloft] 75 mg PO DAILY 07/09/21 [History Last Taken Unknown] Allergy/AdvReac Type Severity Reaction Status Date / Time meperidine [From Demerol] AdvReac Vomiting Verified 07/08/21 15:59 Social History Smoking Status: Never smoker ROS Review of Systems ROS Unobtainable: other Constitutional Constitutional: Denies fatigue, fever(s), poor appetite, weight gain or weight loss ENT HEENT: Denies mouth lesions Cardiovascular Cardiovascular: Denies abdominal bloating, abdominal edema or abdominal pain Respiratory/Chest Respiratory/Chest: Denies change in mental status, change in phlegm color, chest congestion or chest tightness Gastrointestinal Gastrointestinal: Denies belching, bloating, change in bowel habits, change in stool character, chewing difficulty, coffee ground emesis, constipation, cramping, diarrhea, dyspepsia, dysphagia, early satiety, excessive flatus, fecal incontinence, heartburn, hematemesis, hematochezia, hemorrhoids, loose stools, melena, nausea, odynophagia, rectal bleeding, tenesmus, vomiting or weight changes Genitourinary Genitourinary: Denies abdominal discomfort, burning urination or itching Musculoskeletal Musculoskeletal: Reports as per HPI; Denies muscle weakness or myalgias Integumentary Integumentary: Denies jaundice Neurologic Neurologic: Denies lack of coordination or weakness Psychiatric Psychiatric: Denies confusion, depression, memory loss, mood swings, paranoia or suicidal ideation Endocrine Endocrinology: Denies systems reviewed and no addt'l complaints, except as documented Hematologic/Lymphatic Hematologic/Lymphatic: Denies anemia, easy bleeding, easy bruising or lymphadenopathy Allergic/Immunologic Allergic/Immunologic: Denies systems reviewed and no addt'l complaints, except as documented Physical Exam Const alert General Appearance: cooperative Orientation / Consciousness: oriented to person HEENT hearing grossly normal bilaterally Head and Scalp: normal to inspection Face and Sinus: face symmetric Nose: external nose normal Mouth: oral and palatal mucosa normal Eyes conjunctivae normal General Eye: normal appearance of both eyes Neck full ROM General: normal visual inspection Lymph Lymphatic: no lymphadenopathy noted Chest inspection of chest normal and palpation of chest normal Chest: symmetrical chest wall rise Resp normal respiratory effort Effort and Inspection: able to speak in complete sentences Cardio regular rate GI non-distended Percussion: normal to percussion Rectal Exam: deferred Neuro Speech: speech normal Gait (Neuro): normal gait Lab / Micro Data Result Diagrams: 07/09/21 09:25 07/09/21 09:25 Labs: Laboratory Results - last 24 hr 07/08/21 16:05: WBC 7.9, RBC 2.79 L, Hgb 8.1 L, Hct 26.2 L, MCV 93.9, MCH 29.0, MCHC 30.9 L, RDW Std Deviation 62.7 H, RDW Coeff of Naveed 19.0 H, Plt Count 132 L, MPV 10.0, Immature Gran % (Auto) 4.300 H, Neut % (Auto) 68.4, Lymph % (Auto) 19.1, Stoddard % (Auto) 7.8, Eos % (Auto) 0.0, Baso % (Auto) 0.4, Absolute Neuts (auto) 5.4, Absolute Lymphs (auto) 1.50, Nucleated RBC % 3.8 07/08/21 16:05: PT 15.7 H, INR 1.3, APTT 37.4 H 07/08/21 16:05: Sodium 134 L, Potassium 4.2, Chloride 98, Carbon Dioxide 25.0, Anion Gap 11, BUN 18, Creatinine 0.86, Estim Creat Clear Calc 73.68, Est GFR (MDRD) Af Amer 88, Est GFR (MDRD) Non-Af 73, BUN/Creatinine Ratio 20.9 H, Glucose 99, Calcium 9.3, Total Bilirubin 0.30, AST 27, ALT 13, Alkaline Phosphatase 144 H, Troponin I High Sens 26, Total Protein 6.2 L, Albumin 1.6 L, Globulin 4.6 H, Albumin/Globulin Ratio 0.3 L 07/08/21 16:05: B-Natriuretic Peptide 128.3 H 07/08/21 17:25: Lactic Acid 2.3 H* 07/08/21 17:29: COVID-19 (DARCIE) Not Detected 07/08/21 17:40: Blood Type A POSITIVE, Antibody Screen NEGATIVE 07/08/21 17:40: Crossmatch See Detail 07/08/21 17:40: Crossmatch See Detail 07/08/21 20:11: Urine Color Yellow, Urine Clarity Sl. Cloudy, Urine pH 6.0, Ur Specific Kelliher 1.015, Urine Protein Negative, Urine Glucose (UA) Normal, Urine Ketones Negative, Urine Occult Blood Negative, Urine Nitrite Positive H, Urine Bilirubin Negative, Urine Urobilinogen Normal, Ur Leukocyte Esterase 25 H, Urine RBC 0 SEEN, Urine WBC 0-5 SEEN, Ur Squamous Epith Cells 0-5 SEEN, Urine Bacteria 3+, Urine Mucus 0 SEEN 07/08/21 20:50: Hgb 7.2 L, Hct 23.6 L 07/08/21 23:00: Lactic Acid Cancelled 07/09/21 00:28: Hgb 6.4 L, Hct 20.7 L 07/09/21 00:28: Lactic Acid 1.1 07/09/21 09:25: WBC 7.4, RBC 3.28 L, Hgb 9.2 L, Hct 29.8 L, MCV 90.9, MCH 28.0, MCHC 30.9 L, RDW Std Deviation 64.0 H, RDW Coeff of Naveed 20.0 H, Plt Count 100 L, MPV 9.5, Immature Gran % (Auto) 2.800 H, Neut % (Auto) 72.1 H, Lymph % (Auto) 16.0 L, Stoddard % (Auto) 8.7, Eos % (Auto) 0.0, Baso % (Auto) 0.4, Absolute Neuts (auto) 5.4, Absolute Lymphs (auto) 1.19, Nucleated RBC % 2.3 07/09/21 09:25: Sodium 137, Potassium 3.3 L, Chloride 101, Carbon Dioxide 23.0, Anion Gap 13, BUN 18, Creatinine 0.70, Estim Creat Clear Calc 90.53, Est GFR (MDRD) Af Amer 111, Est GFR (MDRD) Non-Af 92, BUN/Creatinine Ratio 25.8 H, Glucose 107 H, Calcium 8.2 L 07/09/21 11:55: MRSA (PCR) POSITIVE H Micro: Microbiology 07/09/21 12:50 Urine, Random Legionella Antigen - Final 07/09/21 12:50 Urine, Random Streptococcus pneumoniae Antigen (M - Final 07/08/21 20:11 Urine, Clean Catch 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 Electronically Signed: Jesus Lerner MD at 17:30 EST , Service support , Chest CTA 07/08/21 17:17 IMPRESSION: 1. Diffuse metastatic bone disease. 2. No demonstrated pulmonary embolism or arterial dissection. 3. There is bilateral pneumonia. 4. There are bilateral pleural effusions. Electronically Signed: Jesus Lerner MD at 18:37 EST , Service support , Assessment & Plan Assessment/Plan (1) GIB (gastrointestinal bleeding): QUALIFIERS: GI bleed type/associated pathology: unspecified gastrointestinal hemorrhage type Qualified Code(s): K92.2 - Gastrointestinal hemorrhage, unspecified PLAN: We will perform an upper endoscopy to evaluate upper GI tract. To see if it is safe for her to go back on anticoagulation. We will also perform biopsies to see if this is any signs of metastatic disease. The patient and the patient's daughter were explained alternatives risk benefits to the procedure and elected to have upper endoscopy. Charges/Coding Visit Charges Inpatient E&M: 67765 Init Hosp L2
[2021-07-09] MEDS: Epinephrine (1 mg/ml) 1 MG/ML VIAL (18:02)
[2021-07-09] MEDS: 0.9% Normal Saline (Pres. free 10 ML Vial (18:02)
--- NOTE | 2021-07-09 18:10 | OP.EGD_ITS ---
Patient Name: Iris Watts Procedure Date: 07/09/2021 5:18 PM Date of : 1965 Age: 56 Procedure: Upper GI endoscopy Indications: Melena Providers: Dk Patel DO Medicines: See the Anesthesia note for documentation of the administered medications Patient Profile: This is a 56 year old female. Refer to note in patient chart for documentation of history and physical. Patient has symptoms. She is status post EGD for treatment of bleeding within the past three months. Complications: No immediate complications. Procedure: Pre-Anesthesia Assessment: - Prior to the procedure, a History and Physical was performed, and patient medications and allergies were reviewed. The patient is competent. The risks and benefits of the procedure and the sedation options and risks were discussed with the patient. All questions were answered and informed consent was obtained. Patient identification and proposed procedure were verified by the physician in the pre-procedure area. Mental Status Examination: alert and oriented. Airway Examination: normal oropharyngeal airway and neck mobility. Respiratory Examination: clear to auscultation. CV Examination: normal. Prophylactic Antibiotics: The patient does not require prophylactic antibiotics. Prior Anticoagulants: The patient has taken no previous anticoagulant or antiplatelet agents. ASA Grade Assessment: II - A patient with mild systemic disease. After reviewing the risks and benefits, the patient was deemed in satisfactory condition to undergo the procedure. The anesthesia plan was to use moderate sedation / analgesia (conscious sedation). Immediately prior to administration of medications, the patient was re-assessed for adequacy to receive sedatives. The heart rate, respiratory rate, oxygen saturations, blood pressure, adequacy of pulmonary ventilation, and response to care were monitored throughout the procedure. The physical status of the patient was re-assessed after the procedure. After obtaining informed consent, the endoscope was passed under direct vision. Throughout the procedure, the patient's blood pressure, pulse, and oxygen saturations were monitored continuously. The Endoscope was introduced through the and advanced to the. The gastroscope was introduced through the mouth, and advanced to the second part of duodenum. The upper GI endoscopy was accomplished without difficulty. The patient tolerated the procedure well. Moderate Sedation: Moderate (conscious) sedation was administered by the endoscopy nurse and supervised by the endoscopist. The patient's oxygen saturation, heart rate, blood pressure and response to care were monitored. Total physician intraservice time was 15 minutes. Scope In: 5:35:42 PM Scope Out: 6:01:47 PM Total Procedure Duration Time 0 hours 26 minutes 5 seconds Findings: The examined esophagus was normal. Red blood was found in the entire examined stomach. Multiple dispersed, 6 mm bleeding erosions were found in the stomach. There were stigmata of recent bleeding. Four oozing cratered gastric ulcers with a visible vessel were found in the gastric antrum. The largest lesion was 6 mm in largest dimension. Area was successfully injected with 5 mL of a 1:10,000 solution of epinephrine for hemostasis. Estimated blood loss was minimal. Many oozing cratered gastric ulcers with adherent clot were found in the gastric body. The largest lesion was 6 mm in largest dimension. Coagulation for hemostasis using heater probe was successful. Estimated blood loss was minimal. Diffuse hemorrhagic mucosa with bleeding and stigmata of recent bleeding was found in the gastric fundus. The second portion of the duodenum was normal. Impression: - Normal esophagus. - Red blood in the entire stomach. - Bleeding erosive gastropathy. - Oozing gastric ulcers with a visible vessel. Injected. - Oozing gastric ulcers with adherent clot. Treated with a heater probe. - Hemorrhagic gastropathy. - Normal second portion of the duodenum. - No specimens collected. Recommendation: - Return patient to hospital [facility] for ongoing care. - Give Protonix (pantoprazole): initiate therapy with 80 mg IV bolus, then 8 mg/hr IV by continuous infusion for 2 days. - NPO today. - Administer an IV bolus of 50 micrograms of octreotide followed by an infusion of 50 micrograms per hour today. - The patient has taken no previous anticoagulant or antiplatelet agents. Procedure Code(s): --- Professional --- 24395, 59, Esophagogastroduodenoscopy, flexible, transoral; with control of bleeding, any method G0500, Moderate sedation services provided by the same physician or other qualified health customer care voice consultant performing a gastrointestinal endoscopic service that sedation supports, requiring the presence of an independent trained observer to assist in the monitoring of the patient's level of consciousness and physiological status; initial 15 minutes of intra-service time; patient age 5 years or older (additional time may be reported with 50733, as appropriate) Diagnosis Code(s): --- Professional --- K92.2, Gastrointestinal hemorrhage, unspecified K31.89, Other diseases of stomach and duodenum K25.4, Chronic or unspecified gastric ulcer with hemorrhage K92.1, Melena (includes Hematochezia) CPT copyright 2017 [employer] [place] [employer]. All rights reserved. The codes documented in this report are preliminary and upon unit supervisor review may be revised to meet current compliance requirements. Dk Patel DO 07/09/2021 6:10:14 PM This report has been signed electronically. Number of Addenda: 1 Note Initiated On: 07/09/2021 5:18 PM Addendum Number: 1 Addendum Date: 04/11/2022 6:37:46 AM MAC was used instead of moderate sedation for this patient. Dk Patel DO 04/11/2022 6:37:53 AM This report has been signed electronically.
[2021-07-09] MEDS: morphine SR 15 MG Tablet PO (20:30)
[2021-07-09] MEDS: MELATONIN 10 MG TABLET PO (20:31)
[2021-07-09 21:12] LABS: Hematocrit 26.4 % (37-47); Hemoglobin 8.4 g/dL (12.0-15.0)
--- NOTE | 2021-07-09 21:14 | PCM.RX.CS ---
Consult Pharmacy has been consulted to manage selected antiobiotic: Vancomycin Type of Consult: New start Suspected Infection: Pneumonia Labs: Sodium 137 mmol/L (136-145) 07/09/21 09:25 Potassium 3.3 mmol/L (3.5-5.1) L 07/09/21 09:25 Chloride 101 mmol/L (98-107) 07/09/21 09:25 Carbon Dioxide 23.0 mmol/L (21.0-32.0) 07/09/21 09:25 Anion Gap 13 (5-15) 07/09/21 09:25 BUN 18 mg/dL (7-18) 07/09/21 09:25 Creatinine 0.70 mg/dL (0.55-1.02) 07/09/21 09:25 Est GFR (MDRD) Af Amer 111 mL/min (>60) 07/09/21 09:25 Est GFR (MDRD) Non-Af 92 mL/min (>60) 07/09/21 09:25 BUN/Creatinine Ratio 25.8 RATIO (10-20) H 07/09/21 09:25 Glucose 107 mg/dL (74-106) H 07/09/21 09:25 Microbiology: Microbiology 07/09/21 12:50 Urine, Random Legionella Antigen - Final 07/09/21 12:50 Urine, Random Streptococcus pneumoniae Antigen (M - Final 07/08/21 20:11 Urine, Clean Catch Urine Culture - Preliminary GNR lactose 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 est trough of 16 Pending Level: 07/11/21 at 0730 Pharmacy Service will continue to monitor and adjust dosing as required. Follow-Up Labs: Trough Vancomycin - 07/11/21 at 0730
[2021-07-09] MEDS: Octreotide 0.1 MG/ML ML 0.05 MG IV (21:28)
[2021-07-10] MEDS: Ondansetron 8 MG Tablet PO ×2 (00:15→13:29)
[2021-07-10] MEDS: 0.9% Saline Lock 10 ML Syringe IV ×3 (00:16→17:24)
[2021-07-10 00:25] LABS: Hematocrit 26.5 % (37-47); Hemoglobin 8.2 g/dL (12.0-15.0)
[2021-07-10 03:30] VITALS: BP 111/68; PULSE 88; RESP 18; TEMP 36.7; O2SAT 97
[2021-07-10] MEDS: Gabapentin 100 MG Capsule 200 MG PO ×3 (05:20→21:47)
[2021-07-10] MEDS: Levothyroxine 75 MCG Tablet PO (05:20)
[2021-07-10] MEDS: DiphenhydrAMINE 50 MG/ML Syringe 25 MG IV (05:21)
[2021-07-10] MEDS: oxyCODONE 5 MG Tablet PO ×3 (05:26→16:36)
--- NOTE | 2021-07-10 07:06 | PN.HOSP_ITS ---
Subjective Subjective Patient overnight with no significant events status post EGD with significant interventions for several gastric ulcers with stable hemoglobin. Patient did have return of urine culture with ESBL E. coli transitioned from levaquin to zosyn which was well-tolerated with no concern for any allergies as the day prior patient had been concerned that it was making her earlobe swell. Patient remains on Lovenox drip as well as octreotide. Patient notes some ongoing mild abdominal discomfort, worse with palpation and was initially upset that she was not able to have a diet but discussed at length and noted that gastroenterology would like her to remain n.p.o. x2 days and following this she did understand this. Her family noted marked concern that she is not getting any nutrition and we did discuss that 2 days without oral intake with continue judicious fluids is not unsafe. Did discuss with family that there are several intravenous fluids that often times are not consistent with the medication she is receiving which is why she was on normal saline. Per their request we will try to transition her to D5NS however this may not be possible which was relayed. Did discuss that TPN in this setting was not appropriate. Also discussed the concept of potential need for future intervention given inability to anticoagulate as this is the second time the bleed has occurred however patient CTPA did not have any recurrent PEs fortunately upon presentation but did discuss case with vascular surgeon, Dr. Roberts who will evaluate patient and discuss future possibility for IVC filter. Patient denies fevers, chills, nausea, emesis, chest pain. Objective Data Objective Data Vital Signs: Vital Signs Temp Pulse Resp BP Pulse Ox 98.0 F 88 18 111/68 97 07/10/21 03:30 07/10/21 03:30 07/10/21 03:30 07/10/21 03:30 07/10/21 03:30 Oxygen Flow Rate (L/min) 2 Oxygen Delivery Method Nasal Cannula Weight: 274 lb 14.663 oz Body Mass Index (BMI) 41.8 Intake & Output: Intake and Output for Last 24 Hours 07/08/21 07/09/21 07/10/21 23:59 23:59 23:59 Intake Total 1290 / 1290 1885 / 1885 137.17 / 137.17 Output Total 450 / 650 200 / 200 Balance 1290 / 1290 1435 / 1235 -62.83 / -62.83 Lab / Micro Data Result Diagrams: 07/10/21 00:05 07/09/21 09:25 Labs: Laboratory Results - last 24 hr 07/08/21 17:40: Crossmatch See Detail 07/08/21 17:40: Crossmatch See Detail 07/09/21 09:25: WBC 7.4, RBC 3.28 L, Hgb 9.2 L, Hct 29.8 L, MCV 90.9, MCH 28.0, MCHC 30.9 L, RDW Std Deviation 64.0 H, RDW Coeff of Naveed 20.0 H, Plt Count 100 L, MPV 9.5, Immature Gran % (Auto) 2.800 H, Neut % (Auto) 72.1 H, Lymph % (Auto) 16.0 L, Stearns % (Auto) 8.7, Eos % (Auto) 0.0, Baso % (Auto) 0.4, Absolute Neuts (auto) 5.4, Absolute Lymphs (auto) 1.19, Nucleated RBC % 2.3 07/09/21 09:25: Sodium 137, Potassium 3.3 L, Chloride 101, Carbon Dioxide 23.0, Anion Gap 13, BUN 18, Creatinine 0.70, Estim Creat Clear Calc 90.53, Est GFR (MDRD) Af Amer 111, Est GFR (MDRD) Non-Af 92, BUN/Creatinine Ratio 25.8 H, Glucose 107 H, Calcium 8.2 L 07/09/21 11:55: MRSA (PCR) POSITIVE H 07/09/21 20:45: Hgb 8.4 L, Hct 26.4 L 07/10/21 00:05: Hgb 8.2 L, Hct 26.5 L Micro: Microbiology 07/09/21 12:50 Urine, Random Legionella Antigen - Final 07/09/21 12:50 Urine, Random Streptococcus pneumoniae Antigen (M - Final 07/08/21 20:11 Urine, Clean Catch Urine Culture - Preliminary GNR lactose veterinary bacteriologist 07/08/21 17:29 Mucosa - Nose Respiratory Panel (PCR) - Final 07/08/21 17:35 Stool Stool Occult Blood (LADARIUS) - Final Occult Blood Positive Physical Exam Narrative Physical Examination: General: Awake, alert, oriented x 3 and cooperative, seated upright in PCU bed in no apparent distress, improved appearance. Skin: Normal color, normal turgor, no icterus, no cyanosis. HEENT: AT/NC, EOMI, PERRLA, mildly dry MM. Lungs: Very distant breath sounds, bilateral bases decreased, mildly rhonchorous bases, decreased effort, no wheezing. Heart: Regular rate and rhythm; no gallop, rub audible. Abdomen: Soft, morbidly obese, mild discomfort to epigastric palpation, dif ficult to assess distention given habitus, distant hyperactive bowel sounds. Extremities: No cyanosis, no clubbing, chronic bilateral lower extremity edema, not markedly pitting, right greater than left which is chronic and unchanged. Neurological: Patient awake, alert, oriented as noted, cognitive function intact; pupils equally reactive to light and accommodation, cranial nerves II- XII grossly normal, moving all 4 extremities, no focal deficits, strength moderately to severely global decrease secondary to acute presentation and underlying metastatic cancer history. Psychiatric: Affect appears mildly flat otherwise no acute distress, no acute evidence of depressive or anxiety feelings. Assessment & Plan Assessment/Plan (1) GIB (gastrointestinal bleeding): QUALIFIERS: GI bleed type/associated pathology: unspecified gastrointestinal hemorrhage type Qualified Code(s): K92.2 - Gastrointestinal hemorrhage, unspecified (2) Hospital-acquired pneumonia: PLAN: The patient is a 56 y/o F w/ PMHx: Metastatic breast cancer to bone, Hypothyroidism, Morbid Obesity, Hx VTE w/ PE, Anxiety and Depression, recent out patient treatment for PNA with cefdinir and azithromycin with outpatient CXR w/ PNA and cough with hypoxia with exertional dyspnea. #1. Acute GI Bleed w/ resultant Acute Blood Loss Anemia on Chronic with history of prior gastric ulcer: Admission Hgb 8.1, admitted to PCU, maintained on digestive fluids, patient's anticoagulant therapy with Eliquis discontinued, patient was not reversed upon admission, patient administered 2 unit PRBC administration with most recent repeat hemoglobin 9.2, maintained on IV PPI with consultation to gastroenterology with 07/09/2021 EGD with noted normal esophagus , significant red blood in the entire stomach with bleeding erosive gastropathy with oozing gastric ulcers with visible vessels and also with adherent clots treated with injection and heater probe with notable hemorrhagic gastropathy with a normal second portion of the duodenum with planned n.p.o. status x2 days, initiated and continued on Protonix bolus with drip infusion ongoing x 2 days as well as octreotide bolus and infusion which will be discontinued 07/10/2021. Hemoglobin continue to be trended with most recent 07/10/2021 hemoglobin 8.2. Patient not anticoagulant candidate at this time and given recurrent bleeds with reattempt at restart anticoagulant therapy recommendation for IVC filter consideration per gastroenterology. Did discuss case with Dr. Chavez who will evaluate the patient and discuss possible future intervention however this would need to occur following complete resolution of patient pneumonia and urinary tract infection and she potentially may not be the best candidate. #2. HCAP Pneumonia: CTPA with diffuse evidence of metastatic bone disease, no demonstrated PE or dissection, bilateral pneumonia with bilateral pleural effusions noted, treated outpatient with cefdinir and azithromycin, initially admitted and treated with IV Zosyn and IV vancomycin which was eventually discontinued however MRSA screen was performed and noted to be positive therefore IV vancomycin restarted, patient with some concern for earlobe swelling therefore IV Zosyn was discontinued and patient transitioned temporarily to Levaquin however given #3 with sensitivity to Zosyn this was restarted and patient had no further concerns that this was responsible for her earlobe swelling. Respiratory panel negative. Urine antigens negative. Patient has been unable to give sputum culture. Blood culture x2 pending per ED. #3. Acute ESBL E. Coli Urinary Tract Infection: UA was mildly notable, urine culture sent and has returned with ESBL E. coli, sensitive to Zosyn therefore p atient transitioned off of Levaquin back to Zosyn and had no further concerning side effects as initial 07/09/2021 family and patient concerns for mild earlobe swelling. Once appropriate patient is sensitive to oral Bactrim otherwise nitrofurantoin. All other agents are intravenous with several resistance patterns. #4. History of VTE with pulmonary emboli: Patient with history of pulmonary emb nathaniel on Eliquis therapy, stopped secondary to #1, CTPA upon presentation with no obvious continued pulmonary emboli evident; however, given patient metastatic cancer history she remains at continued risk for recurrent emboli. Patient per discussion with gastroenterology is better candidate for IVC filter with no further anticoagulant therapy given recurrent bleeds. Discussed case with vascular surgeon, Dr. Roberts who will discuss potential future intervention with family. Patient would need to completely be treated for her pneumonia as well as UTI prior to any considerations. #5. Metastatic breast cancer with metastases to bone: Patient notes outpatient planned upcoming bone scan, following with oncology, currently on immunotherapy, we will continue patient home oxycodone and long-acting morphine regimen however discussed at length potential need for hold if patient was hypotensive given acute presentation #1 with as needed breakthrough IV fentanyl if necessary. Mag and Phos requested with supplementation as needed. #6. Anxiety and depression: We will continue patient home sertraline and low- dose Ativan regimen with hold if BP significantly decreased. #7. Morbid Obesity: Weight loss and lifestyle changes encouraged. #8. Hypothyroidism: Continue home synthroid regimen. #9. GERD: We will maintain on IV PPI as noted above. #10. DVT prophylaxis: SCDs, holding patient home Eliquis regimen as noted above #1. #11. CODE STATUS: DNR CCA, no intubation status. Charges/Coding Visit Charges Inpatient E&M: [id number] [facility] L3
[2021-07-10 07:22] LABS: Magnesium 1.7 mg/dL (1.6-2.6); Phosphorus 3.5 mg/dL (2.5-4.9)
[2021-07-10 09:20] VITALS: BP 115/63; PULSE 87; RESP 16; TEMP 36.3; O2SAT 98
[2021-07-10 09:23] VITALS: O2SAT 90
[2021-07-10] MEDS: morphine SR 15 MG Tablet PO ×2 (09:28→21:47)
[2021-07-10] MEDS: Folic Acid 1 MG Tablet PO (09:28)
[2021-07-10] MEDS: Sertraline 50 MG Tablet 75 MG PO (09:28)
[2021-07-10] MEDS: LORazepam 1 MG Tablet PO ×2 (09:28→21:47)
[2021-07-10] MEDS: Dextrose 5%/0.9% NaCl 1,000 ML 100 ML IV (13:29)
[2021-07-10 14:04] VITALS: O2SAT 95
[2021-07-10 15:20] VITALS: BP 122/79; PULSE 93; RESP 18; TEMP 36.4; O2SAT 95
--- NOTE | 2021-07-10 17:12 | CON.PCM.SX_ITS ---
Assessment & Plan Assessment/Plan (1) History of pulmonary embolism: (2) Obesity: QUALIFIERS: Obesity type: due to excess calories Obesity classification: adult class 3 (BMI >= 40) Serious obesity comorbidity presence: unspecified whether serious comorbidity present Body mass index: BMI 40.0-44.9 Qualified Code(s): E66.01 - Morbid (severe) obesity due to excess calories; Z68.41 - Body mass index [BMI] 40.0-44.9, adult (3) Hospital-acquired pneumonia: (4) GIB (gastrointestinal bleeding): QUALIFIERS: GI bleed type/associated pathology: unspecified gastrointestinal hemorrhage type Qualified Code(s): K92.2 - Gastrointestinal hemorrhage, unspecified (5) Breast cancer: QUALIFIERS: Breast location: unspecified site of breast Estrogen receptor status: unspecified Patient sex: female Laterality: unspecified laterality Qualified Code(s): C50.919 - Malignant neoplasm of unspecified site of unspecified female breast PLAN: Complicated 56-year-old female. By report she has recurrent upper G I bleed from diffuse erosions and ulcerations. Not clear whether this is a stress result from her immunotherapy that she had [place] or whether it is simply secondary to advanced metastatic breast cancer with terminal progression. She currently is diagnosed as having bilateral pneumonia and E. coli resistant urinary tract infection. She recently was hospitalized in [place] with the upper GI bleed as well. She is a distinct history of pulmonary embolization once remotely when she was on tamoxifen and then most recently in 2017 apparently during evaluation that detected her metastatic breast cancer and the PEs were incidentally identified. She was then placed on Eliquis therapy The patient's right IJ port would make a right IJ approach slightly more challenging for placement of the filter. The patient has very heavy legs and overlying abdominal pannus. A femoral approach likely would be possible under ultrasound guidance. Her current hemoglobin is 8.2 with hematocrit of 26.5%. Platelet count on presentation was only 100,000. Her white count on presentation was 7.4. Potassium on presentation was 3.3. Her BUN is 18 creatinine 0.7. Allergies did not include contrast material. MRSA by PCR is positive. By CT she has bilateral pneumonia and by culture and E. coli UTI. My understanding is that she is DNR CC arrest. My understanding is that she has exhausted oncologic treatment for her metastatic breast cancer. This was obtained from information with the patient's daughter. In extensive detail I have discussed technique, benefit, risk, alternatives of placing an inferior vena cava filter. I would like to obtain bilateral lower extremity venous duplex imaging. If active DVT is present then I feel that a vena cava filter is indicated. If no active DVT is present then as Dr. Patel is planning a redo EGD tomorrow July 11 at noon we could reconsider whether she would be a candidate for reinstituting her Eliquis therapy particularly in light that it appears that her prehospitalization oral PPI therapy could be further maximized for treatment of her recent GI bleed. If I have the history correct from the patient's daughter she was only on omeprazole 20 mg daily at the time of her current admission I have had an opportunity to discuss with Dr. Patel and Dr. Brady the patient's current condition and outlook. Both physicians feel that this patient has multiple medical comorbidities with a questionable long-term outcome. The patient and daughter have had an opportunity to ask and have questions answered. They have been made keenly aware that a filter is not a equal substitute to appropriate anticoagulation. They are aware that clots can make it through the filter causing additional pulmonary emboli which in the patient's current compromised pulmonary state could lead to her demise. They are aware that I do use contrast dye and help positioning the filter inferior to the renal veins. They are aware that we utilize what is considered to be a retrievable filter and otherwise pending her longevity would consider future removal. They are aware of the potential of her hypercoagulable state causing her to clot all the way up to the filter causing significant pelvic and lower extremity anasarca and with her GI bleed this would not be treatable with thrombolytics and would not be treatable with removal of the filter. They are additionally aware that the patient's ongoing infective status places her at increased risk for infection of the filter. They are aware that the filter can migrate and the are aware that the filter can fracture with components embolizing or penetrating. Based upon venous duplex imaging and upper endoscopy findings will then make additional recommendations as to whether we should consider proceeding with filter placement. I appreciate the opportunity of assisting with her surgical care Copy: Dr. Brenda Brady and Dr. Dk Roberts M.D., F.A.C.S. HPI Consult Data Date of Consult: 07/10/21 HPI Narrative HPI Narrative: BERTA GUERRA, is a 56 F who presents with a upper gastrointestinal bleed. She has a previous history of pulmonary embolization is on chronic anticoagulation. I have been asked to see her by Dr. Brenda ruiz egarding consideration about possibly placing an inferior vena cava filter. A written copy of my surgical consult recommendations will return to her. This was a complex surgical discussion. 60-minute involvement. The patient has had long-term history of breast cancer with metastatic disease detected in 2016. Apparently March 2021 she underwent a last ditch effort with immunotherapy. That caused significant problems with diffuse colitis and C. difficile colitis and then diffuse gastritis and ulceration. The patient required high-dose steroid treatment, complicating her presentation. She apparently recently was hospitalized in [place]. She presented with a GI bleed. She was briefly taken off of her Eliquis therapy had an upper endoscopy had her stomach sprayed. But within a very few number of days was replaced on her Eliquis therapy. Apparently when she was in [place] there was no discussion regarding a vena cava filter. The patient's daughter however states that she is discussed with 3 other general surgeons who have known this patient for an extended period of time and all 3 of them strongly recommend that the patient have a filter placed. The patient has ESBL E. coli urinary tract infection. A CT of the chest that was obtained on July 08, 2021 demonstrates diffuse metastatic bone disease. Bilateral pneumonia. Bilateral pleural effusions. She is currently on albuterol and octreotide and pantoprazole and Zosyn and vancomycin. Because of her upper GI bleed Dr. Patel performed a EGD on her on July 09, 2021. This showed red blood in the entire stomach. Multiple dispersed 6 mm bleeding erosions in the stomach. For oozing cratered gastric ulcers. These were injected with epinephrine for hemostasis. Coagulation was performed with a heater probe that was successful. Duodenum was normal. According to the patient's daughter she states that Dr. Patel strongly recommended to them that a vena cava filter be placed but upon my discussion with Dr. Patel subsequent to the patient interview that is not clearly the case. I have instructed by Dr. Patel that he plans to do a relook esophagogastroduodenoscopy tomorrow July 11, 2021. If the situation appears increasingly severe then he would offer consideration that the patient not be reanticoagulated. If however the patient is demonstrating improvement then he offered that the patient could be resumed on a low-dose of Eliquis 2.5 mg twice daily. The patient and daughter do not describe that they had venous duplex imaging performed in [place]. She has not had venous duplex imaging here [place] as of yet. To further complicate the history apparently by report the patient was discharged from [place] on omeprazole 20 mg orally in the morning that she would take with her Levoxyl and then an unknown dose of Protonix that she would take slightly later in the morning and then a repeat dose of Protonix that she would take in the evening. I again an unknown unknown length of time whether that be 1 or more weeks ago they said that they received instructions that both medicat ions were not indicated and so they stopped the Protonix. Therefore it appears that the patient was only taking omeprazole 20 mg daily when she represented on this occasion with the upper GI bleed. She is bedbound. Not able to bear weight or move her legs. But this also has been now for several months. She has not had COVID-19. She has received vaccination [facility] Medical History Breast cancer Breast cancer metastasized to bone Hypothyroid Home Medications lorazepam 1 mg PO BID PRN 07/08/21 [History Last Taken Unknown] morphine 30 mg PO BID 07/08/21 [History Last Taken Unknown] ondansetron 8 mg PO Q6H PRN PRN 07/08/21 [History Last Taken Unknown] oxycodone 5 mg PO Q4H PRN PRN 07/08/21 [History Last Taken Unknown] apixaban [Eliquis] 2.5 mg PO BID 07/09/21 [History Last Taken Unknown] folic acid 1 mg PO DAILY 07/09/21 [History Last Taken Unknown] gabapentin 200 mg PO TID 07/09/21 [History Last Taken Unknown] levothyroxine 75 mcg PO DAILY 07/09/21 [History Last Taken Unknown] melatonin 10 mg PO QHS 07/09/21 [History Last Taken Unknown] omeprazole 20 mg PO DAILY 07/09/21 [History Last Taken Unknown] prednisone 10 mg PO DAILY 07/09/21 [History Last Taken Unknown] sertraline [Zoloft] 75 mg PO DAILY 07/09/21 [History Last Taken Unknown] Allergy/AdvReac Type Severity Reaction Status Date / Time meperidine [From Demerol] AdvReac Vomiting Verified 07/08/21 15:59 Social History Smoking Status: Never smoker ROS Constitutional Constitutional: Reports fatigue Eyes Eyes: Reports systems reviewed and no addt'l complaints, except as documented ENT HEENT: Reports nasal congestion Cardiovascular Cardiovascular: Denies chest pain Respiratory/Chest Respiratory/Chest: Reports shortness of breath at rest Gastrointestinal Gastrointestinal: Denies abdominal pain Genitourinary Genitourinary: Reports dysuria Musculoskeletal Musculoskeletal: Reports muscle weakness Integumentary Integumentary: Denies jaundice Neurologic Neurologic: Reports weakness Psychiatric Psychiatric: Reports systems reviewed and no addt'l complaints, except as documented Hematologic/Lymphatic Hematologic/Lymphatic: Reports easy bleeding Physical Exam Const alert Constitutional Narrative: Patient appears chronically ill and weak, nasal prong oxygen in place, shallow respirations HEENT HEENT Narrative: Supple, right chest port in place with palpable tubing extending over the right clavicle into the inferior right neck internal jugular vein Eyes PERRL Neck supple Lymph Lymphatic: no lymphadenopathy noted Chest Chest Narrative: Right chest port in place accessed with IV Resp Resp Narrative: Diminished excursion Cardio Rate: regular rate GI GI Narrative: Soft, nontender, evidence of weight loss lack skin Extremity Extremity Narrative: Large bilateral lower extremities, no focal tenderness no palpable cords Skin Skin Narrative: Anteriorly bilateral lower extremities do not have any skin breakdown Neuro Neuro Narrative: Patient relies upon her daughter for multiple questions and understanding. Lab / Micro Data Result Diagrams: 07/10/21 00:05 07/09/21 09:25 Labs: Laboratory Results - last 24 hr 07/09/21 20:45: Hgb 8.4 L, Hct 26.4 L 07/10/21 00:05: Hgb 8.2 L, Hct 26.5 L 07/10/21 06:30: Phosphorus 3.5, Magnesium 1.7 Micro: Microbiology 07/08/21 20:11 Urine, Clean Catch Urine Culture - Preliminary Escherichia coli 07/09/21 12:50 Urine, Random Legionella Antigen - Final 07/09/21 12:50 Urine, Random Streptococcus pneumoniae Antigen (M - Final
--- NOTE | 2021-07-10 17:36 | VDLE_ITS ---
Reason For Study: SOB RIGHT LEFT GSV is normal. GSV is normal. CFV is compressible, spontaneous, phasic, CFV is compressible, spontaneous, phasic, competent and demonstrates normal competent, and demonstrates normal augmentation. augmentation. FV is compressible, spontaneous, phasic, FV is compressible, spontaneous, phasic, competent and demonstrates normal competent and demonstrates normal augmentation. augmentation. POP V is compressible, spontaneous, phasic, POP V is compressible, spontaneous, phasic, competent and demonstrates normal competent and demonstrates normal augmentation. augmentation. T/P Trunk is compressible. T/P Trunk is compressible. PTV is compressible. PTV is compressible. RT PerV is compressible. LT PerV is compressible. Procedure This is a venous duplex using B-mode, color flow and spectral Doppler. Exam performed portable in patient room. The exam was diagnostic. A preliminary report was called and/or faxed to PCU charge and Nupur at Dr. Roberts's office. VL/Venous Duplex US - Rosendo Extrem Interpretation Summary No evidence for acute deep venous thrombosis bilateral lower extremities with p atent and compressible bilateral great saphenous veins. Ordering Physician: Familia Roberts Performed By: Carlyle Cox RVT
--- NOTE | 2021-07-10 18:02 | EX.PCM.PN.GI ---
Subjective Subjective Patient is very upset that she cannot eat. She is complaining of abdominal pain. She underwent endoscopy yesterday and had multiple ulcers that were treated for an acute GI bleed in the setting of Eliquis therapy. Objective Data Objective Data Vital Signs: Vital Signs Temp Pulse Resp BP Pulse Ox 97.6 F L 93 18 122/79 H 95 07/10/21 15:20 07/10/21 15:20 07/10/21 15:20 07/10/21 15:20 07/10/21 15:20 Oxygen Flow Rate (L/min) 1 Oxygen Delivery Method Nasal Cannula Weight: 274 lb 14.663 oz Body Mass Index (BMI) 41.8 Intake & Output: Intake and Output for Last 24 Hours 07/08/21 07/09/21 07/10/21 23:59 23:59 23:59 Intake Total 1290 / 1290 1885 / 1885 1122.42 / 1122.42 Output Total 450 / 650 200 / 200 Balance 1290 / 1290 1435 / 1235 922.42 / 922.42 Lab / Micro Data Result Diagrams: 07/10/21 00:05 07/09/21 09:25 Labs: Laboratory Results - last 24 hr 07/09/21 20:45: Hgb 8.4 L, Hct 26.4 L 07/10/21 00:05: Hgb 8.2 L, Hct 26.5 L 07/10/21 06:30: Phosphorus 3.5, Magnesium 1.7 Micro: Microbiology 07/08/21 20:11 Urine, Clean Catch Urine Culture - Preliminary Escherichia coli 07/09/21 12:50 Urine, Random Legionella Antigen - Final 07/09/21 12:50 Urine, Random Streptococcus pneumoniae Antigen (M - Final 07/08/21 17:29 Mucosa - Nose Respiratory Panel (PCR) - Final 07/08/21 17:35 Stool Stool Occult Blood (LADRAIUS) - Final Occult Blood Positive Physical Exam Const alert General Appearance: cooperative Orientation / Consciousness: oriented to person HEENT hearing grossly normal bilaterally Head and Scalp: normal to inspection Face and Sinus: face symmetric Nose: external nose normal Mouth: oral and palatal mucosa normal Eyes conjunctivae normal General Eye: normal appearance of both eyes Neck full ROM General: normal visual inspection Lymph Lymphatic: no lymphadenopathy noted Chest inspection of chest normal and palpation of chest normal Chest: symmetrical chest wall rise Resp normal respiratory effort Effort and Inspection: able to speak in complete sentences Cardio regular rate GI non-distended Percussion: normal to percussion Rectal Exam: deferred Neuro Speech: speech normal Gait (Neuro): normal gait Assessment & Plan Assessment/Plan (1) History of pulmonary embolism: PLAN: At this time we will not place her back on anticoagulation. I think is appropriate to rescope her tomorrow after she has been on octreotide and a Protonix drip to see if there is appropriate healing for the administration of anticoagulation. (2) GIB (gastrointestinal bleeding): QUALIFIERS: GI bleed type/associated pathology: unspecified gastrointestinal hemorrhage type Qualified Code(s): K92.2 - Gastrointestinal hemorrhage, unspecified PLAN: She was seen by Dr. Toscano in the plan is to perform Dopplers of the bilateral lower extremities and if there is no DVT then she will get a Luisa filter. Also if her stomach seems to still be bleeding and needs another intervention she will not be a candidate for anticoagulation and that will be another indication for an IVC filter. Charges/Coding Visit Charges Inpatient E&M: 65599 Subs Hosp L3
[2021-07-10 21:43] VITALS: BP 115/72; PULSE 93; RESP 16; TEMP 36.5; O2SAT 97
[2021-07-10] MEDS: MELATONIN 10 MG TABLET PO (21:47)
[2021-07-11] VITALS (13 sets, daily range): BP systolic 100–132; BP diastolic 62–85; PULSE 77–97; RESP 14–18; TEMP 36.4–36.7; O2SAT 95–100; BMI 41.8
--- NOTE | 2021-07-11 | IMM_PTH ---
PATIENT: BERTA GUERRA LOC: [facility] U#:[id number] AGE/SX: 56/F ROOM: [facility] RE07/08/[address]: Dr. Brenda Brady MD : 1965 BED: 1 DIS: 07/12/2021 SPEC #: [id number] RECD: 07/15/21 13:33 STATUS: SHITAL REQ #: [id number] FER: 07/11/21 00:[address]: Dk Patel DEPT: IMMUNOHISTOCHEMISTRY RECD BY: Elen Sifuentes ENTERED: 07/15/21 13:33 SP TYPE: IMMUNO OTHR DR: MD Dr. Bhavin Araya MD Dr. Marc Fiorentino, MD Dr. Paul Nielsen, MD Dr. Robert D Cebul, MD Tissues: Stomach, NOS Procedures: H Pylori (initial) PHYSICIAN & INSTITUTION [place] [address] SPECIMEN INFORMATION: Tissue Source: Greater curvature of stomach, biopsy Clinical Info: History of pulmonary embolism, GI bleeding Specimen Number: [id number] CPT code: 93191 METHODOLOGY: Deparaffinized sections of prefer/formalin-fixed tissue or PAP/DQ stained slides are incubated with monoclonal/polyclonal antibodies/oligonucleotide probes. Localization is made via biotin free immunoperoxidase method. Appropriate controls are performed and reacted as expected. Results on target cell population are indicated in the following table: RESULTS: ANTIBODY / CLONE RESULT H Pylori (polyclonal) negative These tests were developed and their performance characteristics determined by [facility]. They may not have been cleared or approved by the U.S. Food and Drug Administration. The FDA has determined that such clearance or approval is not necessary. The above immunohistochemical/dualISH markers are ordered and reviewed by the Pathologist. INTERPRETATION: Greater curvature of stomach, biopsy: Negative for Helicobacter pylori organisms. SJ:alivn 07/16/2021
[2021-07-11] MEDS: Dextrose 5%/0.9% NaCl 1,000 ML 100 ML IV ×2 (01:33→16:11)
[2021-07-11] MEDS: 0.9% Saline Lock 10 ML Syringe IV ×2 (04:57→14:39)
[2021-07-11] MEDS: Levothyroxine 75 MCG Tablet PO (04:57)
[2021-07-11] MEDS: Gabapentin 100 MG Capsule 200 MG PO ×2 (04:57→23:05)
--- NOTE | 2021-07-11 06:41 | PN.HOSP_ITS ---
Subjective Subjective Patient with no acute events overnight per self and per nursing report. Patient with bilateral lower extremity duplex ultrasound this morning that were noted to be negative however patient did have repeat endoscopy with significant ongoing findings therefore following EGD patient underwent IVC filter placement per discussion with vascular surgeon, Dr. Roberts. Patient notes that abdominal discomfort has lessened, more aching than pain but improved from prior. Patient denies fevers, chills, nausea, emesis, chest pain or dyspnea. Objective Data Objective Data Vital Signs: Vital Signs Temp Pulse Resp BP Pulse Ox 98.1 F 97 18 132/75 H 95 07/11/21 03:25 07/11/21 03:25 07/11/21 03:25 07/11/21 03:25 07/11/21 03:25 Oxygen Flow Rate (L/min) 2 Oxygen Delivery Method Nasal Cannula Weight: 274 lb 14.663 oz Body Mass Index (BMI) 41.8 Intake & Output: Intake and Output for Last 24 Hours 07/09/21 07/10/21 07/11/21 23:59 23:59 23:59 Intake Total 1885 / 1885 3022.42 / 3082.42 210 / 210 Output Total 450 / 650 200 / 200 Balance 1435 / 1235 2822.42 / 2882.42 210 / 210 Lab / Micro Data Result Diagrams: 07/11/21 07:28 07/11/21 08:45 Labs: Laboratory Results - last 24 hr 07/10/21 06:30: Phosphorus 3.5, Magnesium 1.7 Micro: Microbiology 07/08/21 20:11 Urine, Clean Catch Urine Culture - Preliminary Escherichia coli 07/09/21 12:50 Urine, Random Legionella Antigen - Final 07/09/21 12:50 Urine, Random Streptococcus pneumoniae Antigen (M - Final 07/08/21 17:29 Mucosa - Nose Respiratory Panel (PCR) - Final 07/08/21 17:35 Stool Stool Occult Blood (LADARIUS) - Final Occult Blood Positive Physical Exam Narrative Physical Examination: General: Awake, alert, oriented x 3 and cooperative, seated upright in PCU bed in no apparent distress, improved appearance. Skin: Normal color, normal turgor, no icterus, no cyanosis. HEENT: AT/NC, EOMI, PERRLA, mildly dry MM. Lungs: Very distant breath sounds, bilateral bases decreased, mildly rhonchorous bases, decreased effort, no wheezing. Heart: Regular rate and rhythm; no gallop, rub audible. Abdomen: Soft, morbidly obese, mild discomfort to epigastric palpation, difficult to assess distention given habitus, distant hyperactive bowel sounds. Extremities: No cyanosis, no clubbing, chronic bilateral lower extremity edema, not markedly pitting, right greater than left which is chronic and unchanged. Neurological: Patient awake, alert, oriented as noted, cognitive function intact; pupils equally reactive to light and accommodation, cranial nerves II- XII grossly normal, moving all 4 extremities, no focal deficits, strength moderately to severely global decrease secondary to acute presentation and underlying metastatic cancer history. Psychiatric: Affect appears mildly flat otherwise no acute distress, no acute evidence of depressive or anxiety feelings. Assessment & Plan Assessment/Plan (1) GIB (gastrointestinal bleeding): QUALIFIERS: GI bleed type/associated pathology: unspecified gastrointestinal hemorrhage type Qualified Code(s): K92.2 - Gastrointestinal hemorrhage, unspecified (2) Hospital-acquired pneumonia: PLAN: The patient is a 56 y/o F w/ PMHx: Metastatic breast cancer to bone, Hypothyroidism, Morbid Obesity, Hx VTE w/ PE, Anxiety and Depression, recent outpatient treatment for PNA with cefdinir and azithromycin with outpatient CXR w/ PNA and cough with hypoxia with exertional dyspnea. #1. Acute GI Bleed w/ resultant Acute Blood Loss Anemia on Chronic with history of prior gastric ulcer: Admission Hgb 8.1, admitted to PCU, maintained on digestive fluids, patient's anticoagulant therapy with Eliquis discontinued, patient was not reversed upon admission, patient administered 2 unit PRBC administration with most recent repeat hemoglobin 9.2, maintained on IV PPI with consultation to gastroenterology with 07/09/2021 EGD with noted normal esophagus, significant red blood in the entire stomach with bleeding erosive gastropathy with oozing gastric ulcers with visible vessels and also with adherent clots treated with injection and heater probe with notable hemorrhagic gastropathy with a normal second portion of the duodenum w/ Protonix bolus with drip infusion ongoing x 2 days, octreotide bolus and infusion discontinued 07/10/2021 w/ NPO status. 07/11/21 Hgb 8.8. Repeat 07/11/21 EGD repeat with OA grade C acute esophagitis, again red blood in the stomach with oozing gastric ulcers and adherent clot which was injected and treated with a heater probe with biopsies also obtained with transition allowance following intervention to clear liquid diet, administration also of sucralfate, readministration of octreotide bolus for day of EGD and continued Protonix infusion. #2. HCAP Pneumonia: CTPA with diffuse evidence of metastatic bone disease, no demonstrated PE or dissection, bilateral pneumonia with bilateral pleural effusions noted, treated outpatient with cefdinir and azithromycin, initially admitted and treated with IV Zosyn and IV vancomycin which was eventually discontinued however MRSA screen was performed and noted to be positive therefore IV vancomycin restarted, patient with some concern for earlobe swelling therefore IV Zosyn was discontinued and patient transitioned temporarily to Levaquin however given #3 with sensitivity to Zosyn this was restarted and patient had no further concerns that this was responsible for her earlobe swelling. Respiratory panel negative. Urine antigens negative. Patient has been unable to give sputum culture. Blood culture x2 NGTD #3. Acute ESBL E. Coli Urinary Tract Infection: UA was mildly notable, urine culture sent and has returned with ESBL E. coli, sensitive to Zosyn therefore patient transitioned off of Levaquin back to Zosyn and had no further concerning side effects as initial 07/09/2021 family and patient concerns for mild earlobe swelling. Once appropriate patient is sensitive to oral Bactrim otherwise nitrofurantoin with all other agents are intravenous with several resistance patterns. #4. History of VTE with pulmonary emboli: Patient with history of pulmonary emboli on Eliquis therapy. Given patient presentation with GI bleed, Eliquis discontinued with CTPA upon presentation as noted with no obvious evidence of any pulmonary emboli, bilateral lower extremity duplex ultrasound with no acute clots however patient with significant EGD findings with ongoing bleeding therefore 07/11/2021 IVC filter placed per Dr. Roberts. #5. Metastatic breast cancer with metastases to bone: Patient notes outpatient planned upcoming bone scan, following with oncology, currently on immunotherapy, we will continue patient home oxycodone and long-acting morphine regimen however discussed at length potential need for hold if patient was hypotensive given acute presentation #1 with as needed breakthrough IV fentanyl if necessary. Mag and Phos requested with supplementation as needed. #6. Anxiety and depression: We will continue patient home sertraline and low- dose Ativan regimen with hold if BP significantly decreased. #7. Morbid Obesity: Weight loss and lifestyle changes encouraged. #8. Hypothyroidism: Continue home synthroid regimen. #9. GERD: We will maintain on IV PPI as noted above. #10. DVT prophylaxis: SCDs, holding patient home Eliquis regimen as noted above #1. 07/11/21 IVC filter placed. #11. CODE STATUS: DNR CCA, no intubation status. Charges/Coding Visit Charges Inpatient E&M: 25038 Subs Hosp L3
--- NOTE | 2021-07-11 07:42 | PCM.PN.BLA ---
Assessment & Plan Assessment/Plan (1) History of pulmonary embolism: PLAN: Spoke with patient again in regards to potential IVC filter placement this morning. Patient did not have any further questions or concerns. She is agreeable to sign the consent. I explained to the patient because she will be sedated for the upper scope, she will not legally be able to sign a consent form for the IVC filter after the upper scope. Patient verbally understood. Dr. Roberts will proceed with the IVC filter placement at 1330 pm. The ONLY reason this procedure would be canceled is if patient has a negative DVT study and her stomach looks greatly improved and will be able to resume her anticoagulation safely within days. Dr. Brady is also aware of the plan.
[2021-07-11 07:51] LABS: Absolute Lymphocyte Count 0.86 X10^3/uL (0.83-4.51); Basophil# 0.04 X10^3/uL; Basophil% 0.8 % (0-1); Eosinophil# 0.03 X10^3/uL; Eosinophils% 0.6 % (0-5); Hematocrit 27.2 % (37-47); Hemoglobin 8.8 g/dL (12.0-15.0); Lymphocyte # 0.86 X10^3/ul (0.83-4.51); Mean Corp Hgb Conc 32.4 g/dL (32-36); Mean Corpuscular Hgb 30.6 pg (27.0-32.0); Mean Corpuscular Volume 94.4 fL (81-99); Mean Platelet Vol. 10.4 fl (6.2-12.0); Monocyte# 0.69 X10^3/uL; Monocyte% 14.4 % (0-10); Neutrophil # 3.01 X10^3/uL (2.7-7.7); Neutrophil % 62.9 % (47-70); POSITIVE MORPHOLOGY YES; Platelet Count 116 K/mm3 (150-450); RBC Distribution Width CV 21.1 % (11.6-14.6); RBC Distribution Width SD 63.8 fl (35.1-43.9); Red Blood Count 2.88 M/mm3 (4.2-5.4); White Blood Count 4.8 K/mm3 (4.4-11.0)
[2021-07-11 08:10] LABS: Differential Indicated SCAN CRITERIA MET
[2021-07-11 08:15] LABS: Vancomycin, Trough Level 27.4 ug/mL (5.0-15.0)
[2021-07-11 08:54] LABS: Anisocytosis 1+
[2021-07-11] MEDS: LORazepam 1 MG Tablet PO ×2 (09:00→23:06)
[2021-07-11] MEDS: Folic Acid 1 MG Tablet PO (09:00)
[2021-07-11] MEDS: Sertraline 50 MG Tablet 75 MG PO (09:00)
[2021-07-11] MEDS: morphine SR 15 MG Tablet PO ×2 (09:00→23:05)
[2021-07-11 09:15] LABS: ALB/GLOB Ratio 0.3 RATIO (0.9-2.4); AST(SGOT) 20 U/L (15-37); Alanine Aminotransfer ALT/SGPT 10 U/L (13-56); Albumin, Serum 1.2 g/dL (3.2-5.0); Alkaline Phosphatase 123 U/L (45-117); Anion Gap 8 (5-15); BUN 12 mg/dL (7-18); BUN/Creat Ratio 16.1 RATIO (10-20); Calcium,Total 7.4 mg/dL (8.5-10.1); Chloride 108 mmol/L (98-107); Creatinine, Serum 0.75 mg/dL (0.55-1.02); EST Glomerular Filtration Rate 85 mL/min (>60); Est Glom Filt Rate - Afr Amer 103 mL/min (>60); Estimated Creatinine Clearance 84.49 ml/min; Glucose 148 mg/dL (74-106); Potassium 3.3 mmol/L (3.5-5.1); Protein, Total 5.2 g/dL (6.4-8.2); Sodium Level 139 mmol/L (136-145)
--- NOTE | 2021-07-11 11:45 | EGD_PTH ---
PATIENT: BERTA GUERRA LOC: [facility] U#:[id number] AGE/SX: 56/F ROOM: [facility] RE07/08/[address]: Dr. Brenda Brady MD : 1965 BED: 1 DIS: 07/12/2021 SPEC #: [id number] RECD: 07/11/21 14:25 STATUS: SHITAL RELashay #: [id number] FER: 07/11/21 11:[address]: Dk Patel DEPT: SURGICAL PATHOLOGY RECD BY: Lola Barnhart ENTERED: 07/12/21 08:40 SP TYPE: EGD BIOPSY OTHR DR: MD Dr. Bhavin Araya MD Dr. Marc Fiorentino, MD Dr. Paul Nielsen, MD Dr. Robert D Cebul, MD Tissues: Stomach, NOS Procedures: Surgery Specimen Level IV Comments: @ Ordering doctor for SUIV edited from to @ by STEFF at 07/12/21 1507 @ Submitting doctor edited from to @ by RGOOD at 07/12/21 1507 HEADER OPERATION: EGD PRE-OP DIAGNOSIS: History of pulmonary embolism; gastrointestinal bleeding TISSUE SUBMITTED: Biopsy of greater curvature of stomach MICROSCOPIC DIAGNOSIS Greater curvature of stomach, biopsy: Fragments of gastric mucosa with extensive ulceration, moderate to marked acute and chronic inflammation. Extensive hyperplastic/inflammatory polyp changes and reactive epithelial changes. See comment. SJ:alvin 07/15/2021 COMMENT The results of immunohistochemistry for Helicobacter pylori will be reported separately ([id number]). Correlation with clinical, endoscopic findings and appropriate follow up are necessary. Case has been reviewed in consultation with Dr. Casarez who concurs with the above diagnosis. IDC:PRIMO MICROSCOPIC DESCRIPTION Slides are reviewed. GROSS DESCRIPTION Received in fixative is one container labeled with the patient's name and designated biopsy greater curvature of stomach. The specimen consists of multiple irregular fragments of light hall soft tissue that in aggregate measure 2 x 0.5 x 0.1 cm. The specimen is totally submitted in one cassette. / MARCY:alvin 07/12/21 TC:2 CPT: 24492
--- NOTE | 2021-07-11 13:40 | OP.EGD_ITS ---
Patient Name: Iris Watts Procedure Date: 07/11/2021 12:47 PM Date of : 1965 Age: 56 Procedure: Upper GI endoscopy Indications: Acute post hemorrhagic anemia Providers: Dk Patel DO Medicines: See the Anesthesia note for documentation of the administered medications Patient Profile: This is a 56 year old female. Refer to note in patient chart for documentation of history and physical. Patient has symptoms. She is status post EGD for treatment of bleeding recently. Complications: No immediate complications. Procedure: Pre-Anesthesia Assessment: - Prior to the procedure, a History and Physical was performed, and patient medications and allergies were reviewed. The risks and benefits of the procedure and the sedation options and risks were discussed with the patient. All questions were answered and informed consent was obtained. Patient identification and proposed procedure were verified by the physician in the pre-procedure area. Mental Status Examination: alert and oriented. Airway Examination: normal oropharyngeal airway and neck mobility. Respiratory Examination: clear to auscultation. CV Examination: normal. Prophylactic Antibiotics: The patient does not require prophylactic antibiotics. Prior Anticoagulants: The patient has taken no previous anticoagulant or antiplatelet agents. ASA Grade Assessment: II - A patient with mild systemic disease. After reviewing the risks and benefits, the patient was deemed in satisfactory condition to undergo the procedure. The anesthesia plan was to use moderate sedation / analgesia (conscious sedation). Immediately prior to administration of medications, the patient was re-assessed for adequacy to receive sedatives. The heart rate, respiratory rate, oxygen saturations, blood pressure, adequacy of pulmonary ventilation, and response to care were monitored throughout the procedure. The physical status of the patient was re-assessed after the procedure. After obtaining informed consent, the endoscope was passed under direct vision. Throughout the procedure, the patient's blood pressure, pulse, and oxygen saturations were monitored continuously. The gastroscope was introduced through the and advanced to the. The gastroscope was introduced through the mouth, and advanced to the second part of duodenum. Moderate Sedation: Moderate (conscious) sedation was administered by the endoscopy nurse and supervised by the endoscopist. The patient's oxygen saturation, heart rate, blood pressure and response to care were monitored. Total physician intraservice time was 15 minutes. Scope In: 1:14:54 PM Scope Out: 1:28:02 PM Total Procedure Duration Time 0 hours 13 minutes 8 seconds Findings: LA Grade C (one or more mucosal breaks continuous between tops of 2 or more mucosal folds, less than 75% circumference) esophagitis with no bleeding was found 34 to 35 cm from the incisors. Red blood was found in the stomach. Many oozing linear gastric ulcers with adherent clot were found in the gastric body, on the anterior wall of the stomach, on the greater curvature of the stomach, at the incisura and in the gastric antrum. The largest lesion was 17 mm in largest dimension. Area was successfully injected with 4 mL of a 1:10,000 solution of epinephrine for hemostasis. Coagulation for hemostasis using heater probe was successful. Estimated blood loss was minimal. Many oozing linear gastric ulcers were found on the anterior wall of the stomach, on the greater curvature of the stomach, on the lesser curvature of the stomach, at the incisura and in the gastric antrum. The largest lesion was 17 mm in largest dimension. Biopsies were taken with a cold forceps for histology. Verification of patient identification for the specimen was done. Estimated blood loss was minimal. The second portion of the duodenum was normal. Impression: - LA Grade C acute esophagitis. - Red blood in the stomach. - Oozing gastric ulcers with adherent clot. Injected. Treated with a heater probe. - Oozing gastric ulcers. Biopsied. - Normal second portion of the duodenum. Recommendation: - Return patient to hospital [facility] for ongoing care. - Clear liquid diet today. - Use sucralfate tablets 1 gram PO QID for 8 weeks. - Administer an IV bolus of 50 micrograms of octreotide followed by an infusion of 50 micrograms per hour today. - Give Protonix (pantoprazole): initiate therapy with 80 mg IV bolus, then 8 mg/hr IV by continuous infusion today. - Continue present medications. Procedure Code(s): --- Professional --- 44854, 59, Esophagogastroduodenoscopy, flexible, transoral; with control of bleeding, any method 85895, Esophagogastroduodenoscopy, flexible, transoral; with biopsy, single or multiple G0500, Moderate sedation services provided by the same physician or other qualified health aged or disabled carer performing a gastrointestinal endoscopic service that sedation supports, requiring the presence of an independent trained observer to assist in the monitoring of the patient's level of consciousness and physiological status; initial 15 minutes of intra-service time; patient age 5 years or older (additional time may be reported with 13200, as appropriate) CPT copyright 2017 [employer]. All rights reserved. The codes documented in this report are preliminary and upon manager leadership development review may be revised to meet current compliance requirements. Dk Patel DO 07/11/2021 1:40:07 PM This report has been signed electronically. Number of Addenda: 1 Note Initiated On: 07/11/2021 12:47 PM Addendum Number: 1 Addendum Date: 04/16/2022 7:00:50 AM MAC was used instead of moderate sedation for the patient. Dk Patel DO 04/16/2022 7:00:57 AM This report has been signed electronically.
--- NOTE | 2021-07-11 14:07 | OP.PCM_ITS ---
Problems Associated Problem List Diagnoses (1) History of pulmonary embolism: (2) Breast cancer: (3) GIB (gastrointestinal bleeding): Report of Operation Date of Procedure: 07/11/21 Pre-Operative Diagnosis: Gastric bleeding, contraindication to anticoagulation, history of pulmonary embolism, metastatic breast cancer metastatic breast cancer Post-Operative Diagnosis: Same Surgery/Procedure Performed:: Inferior venacavogram with inferior vena cava Yina filter placement Description of Surgical Findings:: The patient had just completed her upper endoscopy per Dr. Patel. Diffuse inflammatory changes of the stomach were identified. Biopsies were obtained and there is a concern that this represents metastatic breast cancer. She is felt to be contraindicated to resuming her o ral anticoagulant. With some of her monitored anesthesia care still left in place she was taken to the Mining And Quarrying Machinery Repairer. She was placed upon the table. Because the patient has a right internal jugular port in place I elected to place the filter via the right groin. This was prepped and draped. Under ultrasound guidance 2% lidocaine was instilled as a local anesthetic. Total of 8 cc was used. Under ultrasound guidance a micropuncture needle was inserted micropuncture wire inserted and a 5 [place] sheath dilator was inserted. Using an 035 J-wire a 5 [place] universal flush flush catheter was placed into the right common iliac vein. Using 15 cc 2nd of of 15 cc of Isovue and inferior venacavogram was obtained. Somewhat difficult to see the entrance of the renal veins but clearly there was a nice straight section of vena cava of appropriate diameter without any evidence of thrombus. The 5 [place] sheath was removed and the tract was predilated with a 9 [place] sheath. The 8 [place] delivery mechanism was inserted. The femoral approach Gem filter was advanced it was positioned to have its apex close to the origin of the renal veins it was deployed good upright positioning was achieved the deployment device was removed the sheath was removed pressure was held for hemostasis sterile dressings applied blood loss was minimal no apparent complication The inferior venacavogram demonstrated a patent inferior vena cava of appropriate diameter without evidence of thrombus. Successfully deployed Yina filter. Familia Roberts M.D., F.A.C.S. Surgeon: Familia Roberts Type of Anesthesia: Local
--- NOTE | 2021-07-11 14:43 | PCM.RX.CS ---
Consult Pharmacy has been consulted to manage selected antiobiotic: Vancomycin Type of Consult: Follow-up Suspected Infection: Pneumonia Labs: Sodium 139 mmol/L (136-145) 07/11/21 08:45 Potassium 3.3 mmol/L (3.5-5.1) L 07/11/21 08:45 Chloride 108 mmol/L (98-107) H 07/11/21 08:45 Carbon Dioxide 23.0 mmol/L (21.0-32.0) 07/11/21 08:45 Anion Gap 8 (5-15) 07/11/21 08:45 BUN 12 mg/dL (7-18) 07/11/21 08:45 Creatinine 0.75 mg/dL (0.55-1.02) 07/11/21 08:45 Est GFR (MDRD) Af Amer 103 mL/min (>60) 07/11/21 08:45 Est GFR (MDRD) Non-Af 85 mL/min (>60) 07/11/21 08:45 BUN/Creatinine Ratio 16.1 RATIO (10-20) 07/11/21 08:45 Glucose 148 mg/dL (74-106) H 07/11/21 08:45 Vancomycin Trough 27.4 ug/mL (5.0-15.0) H 07/11/21 07:28 Microbiology: Microbiology 07/08/21 17:25 Blood Culture (Wb) - Anticubital Right Blood Culture - Preliminary No growth in 48 hours. 07/08/21 17:20 Blood Culture (Wb) - Right Hand Blood Culture - Preliminary No growth in 48 hours. 07/08/21 20:11 Urine, Clean Catch Urine Culture - Final Escherichia coli 07/09/21 12:50 Urine, Random Legionella Antigen - Final 07/09/21 12:50 Urine, Random Streptococcus pneumoniae Antigen (M - Final 07/08/21 17:29 Mucosa - Nose Respiratory Panel (PCR) - Final 07/08/21 17:35 Stool Stool Occult Blood (LADARIUS) - Final Occult Blood Positive Goal Trough: 15-20 mcg/mL Pharmacy Plan for Drug Dosing: VANCOMYCIN LEVEL RECEIVED Current Vancomycin Dose: 2G IV Q12 Number of Doses Received: 3 (total vancomycin doses) Vancomycin Level: 27.4 Hours Since Last Dose: 12.5hr Renal Function: 0.75 Renal Function Trend: stable Lab/Micro: MRSA PCR (+) Vancomycin Plan/Comments: Vancomycin trough drawn which resulted in a value of 27.4 (Goal 15-20). Morning dose was not administered after discussing elevated trough with nursing. Will hold off on subsequent vancomycin dosing until trough <20. Since last dose of vancomycin was yesterday evening, will get a random level this evening, which would be ~24hr from last administered vancomycin dose. DISCONTINUE current dosing and HOLD VANCOMYCIN until trough is reassessed. Pending Level: *RANDOM* level 07/11/21 @2539 Pharmacy Service will continue to monitor and adjust dosing as required.
[2021-07-11] MEDS: Potassium Chloride 10mEq/100mL 10 MEQ/100 ML IV.SOLN. 100 MEQ IV BOLUS ×4 (15:28→18:42)
[2021-07-11] MEDS: Sucralfate 1 GM Tablet PO ×2 (16:11→23:05)
[2021-07-11] MEDS: Ondansetron 8 MG Tablet PO (18:06)
[2021-07-11] MEDS: oxyCODONE 5 MG Tablet PO (18:06)
--- NOTE | 2021-07-11 19:40 | NURSING ---
pt called stating that it feels as if her iv infiltrated. this rn went in to assess the site, found that her right breast was swollen and edematous, R port site was saturated with clear fluid. ivf immediately stopped. this rn had the nurse charge rn come and assess the site. pharmacy was called, pt was getting ivf and a protonix gtt thru that port, no issue with extravasation from these meds. nursing metal furniture assembly supervisor was notified, she came to the floor deaccessed the port and then reaccessed it with a 1inch needle. dressing applied to help hold pressure to prevent the needle from pulling out of the internal hub. right arm elevated up on a pillow.
[2021-07-11 20:16] LABS: Vancomycin, Random Level 28.2 ug/mL (0.0-15.0)
--- NOTE | 2021-07-11 21:03 | PCM.RX.CS ---
Consult Type of Consult: Follow-up Prior Doses of Antibiotics Received/Current Regimen: Last dose was 2000mg iv on 07.10.21 @1901. Labs: Sodium 139 mmol/L (136-145) 07/11/21 08:45 Potassium 3.3 mmol/L (3.5-5.1) L 07/11/21 08:45 Chloride 108 mmol/L (98-107) H 07/11/21 08:45 Carbon Dioxide 23.0 mmol/L (21.0-32.0) 07/11/21 08:45 Anion Gap 8 (5-15) 07/11/21 08:45 BUN 12 mg/dL (7-18) 07/11/21 08:45 Creatinine 0.75 mg/dL (0.55-1.02) 07/11/21 08:45 Est GFR (MDRD) Af Amer 103 mL/min (>60) 07/11/21 08:45 Est GFR (MDRD) Non-Af 85 mL/min (>60) 07/11/21 08:45 BUN/Creatinine Ratio 16.1 RATIO (10-20) 07/11/21 08:45 Glucose 148 mg/dL (74-106) H 07/11/21 08:45 Vancomycin Trough 27.4 ug/mL (5.0-15.0) H 07/11/21 07:28 Random Vancomycin 28.2 ug/mL (0.0-15.0) H 07/11/21 19:30 Microbiology: Microbiology 07/08/21 17:25 Blood Culture (Wb) - Anticubital Right Blood Culture - Preliminary No growth in 48 hours. 07/08/21 17:20 Blood Culture (Wb) - Right Hand Blood Culture - Preliminary No growth in 48 hours. 07/08/21 20:11 Urine, Clean Catch Urine Culture - Final Escherichia coli 07/09/21 12:50 Urine, Random Legionella Antigen - Final 07/09/21 12:50 Urine, Random Streptococcus pneumoniae Antigen (M - Final 07/08/21 17:29 Mucosa - Nose Respiratory Panel (PCR) - Final 07/08/21 17:35 Stool Stool Occult Blood (LADARIUS) - Final Occult Blood Positive Weight used for dosin kg Estimated Creatinine Clearance: 116 ML/MIN Goal Trough: 15-20 mcg/mL Pharmacy Plan for Drug Dosing: Random level today @1930 was 28.2 (~24 hrs post last dose). Will hold any further dosing and get another random level in AM tomorrow. Pharmacy Service will continue to monitor and adjust dosing as required. Follow-Up Labs: Trough Vancomycin - random level 0600 12.3.21
--- NOTE | 2021-07-11 21:05 | NURSING ---
CALLED TO PT ROOM TO ASSESS PT'S PORT SITE. CURRENT ACCESS IN PT'S RIGHT CHEST. RT CHEST AND BREAST IS VERY EDEMETOUS. RT BREAST IS HARD TO TOUCH. DRESSING TO PORT ACCESS DEVICE IS SATURATED WITH SEROUS DRAINAGE. PORT IS DEACCESSED AND REACCESSED WITH 1 INCH NEEDLE. GOOD BLOOD RETURN NOTED. DUE TO PT'S SIZE AND EDEMA, LIGHT PRESSURE DRESSING WILL BE APPLIED TO MAINTAIN INTEGRITY OF PORT.
[2021-07-11] MEDS: MELATONIN 10 MG TABLET PO (23:05)
--- NOTE | 2021-07-12 01:26 | NURSING ---
pts right med port flushed w good blood return.
[2021-07-12 02:00] VITALS: BP 119/70; PULSE 81; RESP 18; TEMP 37.1; O2SAT 95
[2021-07-12] MEDS: Dextrose 5%/0.9% NaCl 1,000 ML 100 ML IV (03:23)
[2021-07-12] MEDS: Levothyroxine 75 MCG Tablet PO (05:18)
[2021-07-12] MEDS: Sucralfate 1 GM Tablet PO ×2 (05:18→11:59)
[2021-07-12] MEDS: Gabapentin 100 MG Capsule 200 MG PO ×2 (05:18→13:28)
[2021-07-12 06:14] LABS: Absolute Lymphocyte Count 0.88 X10^3/uL (0.83-4.51); Absolute Neutrophil Count 3.1 X10^3/uL (2.0-7.7); Basophil# 0.04 X10^3/uL; Basophil% 0.8 % (0-1); Hematocrit 28.9 % (37-47); Hemoglobin 8.7 g/dL (12.0-15.0); Lymphocyte # 0.88 X10^3/ul (0.83-4.51); Mean Corp Hgb Conc 30.1 g/dL (32-36); Mean Corpuscular Hgb 27.9 pg (27.0-32.0); Mean Corpuscular Volume 92.6 fL (81-99); Mean Platelet Vol. 9.4 fl (6.2-12.0); Monocyte# 0.91 X10^3/uL; Monocyte% 17.6 % (0-10); NRBC Flagged by Analyzer 0.8 % (0-5); Neutrophil # 3.14 X10^3/uL (2.7-7.7); Neutrophil % 60.7 % (47-70); POSITIVE MORPHOLOGY YES; Platelet Count 107 K/mm3 (150-450); RBC Distribution Width CV 20.2 % (11.6-14.6); RBC Distribution Width SD 67.4 fl (35.1-43.9); Red Blood Count 3.12 M/mm3 (4.2-5.4); White Blood Count 5.2 K/mm3 (4.4-11.0)
[2021-07-12 06:19] LABS: Differential Indicated SCAN CRITERIA MET
--- NOTE | 2021-07-12 06:26 | PN.HOSP_ITS ---
Subjective Subjective Port infiltrates, R breast enlarged. Objective Data Objective Data Vital Signs: Vital Signs Temp Pulse Resp BP Pulse Ox 98.7 F 81 18 119/70 95 07/12/21 02:00 07/12/21 02:00 07/12/21 02:00 07/12/21 02:00 07/12/21 02:00 Oxygen Flow Rate (L/min) 2 Oxygen Delivery Method Nasal Cannula Weight: 274 lb 14.663 oz Body Mass Index (BMI) 41.8 Intake & Output: Intake and Output for Last 24 Hours 07/10/21 07/11/21 07/12/21 23:59 23:59 23:59 Intake Total 3022.42 / 3082.42 1900.00 / 1900.00 1050 / 1050 Output Total 200 / 200 0 / 0 Balance 2822.42 / 2882.42 1900.00 / 1900.00 1050 / 1050 Lab / Micro Data Result Diagrams: 07/12/21 06:05 07/11/21 08:45 Labs: Laboratory Results - last 24 hr 07/11/21 07:28: Vancomycin Trough 27.4 H 07/11/21 07:28: WBC 4.8, RBC 2.88 L, Hgb 8.8 L, Hct 27.2 L, MCV 94.4, MCH 30.6, MCHC 32.4, RDW Std Deviation 63.8 H, RDW Coeff of Naveed 21.1 H, Plt Count 116 L, MPV 10.4, Immature Gran % (Auto) 3.300 H, Neut % (Auto) 62.9, Lymph % (Auto) 18.0 L, [place] % (Auto) 14.4 H, Eos % (Auto) 0.6, Baso % (Auto) 0.8, Absolute Neuts (auto) 3.0, Absolute Lymphs (auto) 0.86, Nucleated RBC % 1.0, Anisocytosis 1+ 07/11/21 08:45: Sodium 139, Potassium 3.3 L, Chloride 108 H, Carbon Dioxide 23.0, Anion Gap 8, BUN 12, Creatinine 0.75, Estim Creat Clear Calc 84.49, Est GFR (MDRD) Af Amer 103, Est GFR (MDRD) Non-Af 85, BUN/Creatinine Ratio 16.1, Glucose 148 H, Calcium 7.4 L, Total Bilirubin 0.40, AST 20, ALT 10 L, Alkaline Phosphatase 123 H, Total Protein 5.2 L, Albumin 1.2 L, Globulin 4.0, Albumin/Globulin Ratio 0.3 L 07/11/21 19:30: Random Vancomycin 28.2 H 07/12/21 06:05: WBC 5.2, RBC 3.12 L, Hgb 8.7 L, Hct 28.9 L, MCV 92.6, MCH 27.9, MCHC 30.1 L D, RDW Std Deviation 67.4 H, RDW Coeff of Naveed 20.2 H, Plt Count 107 L, MPV 9.4, Immature Gran % (Auto) 3.900 H, Neut % (Auto) 60.7, Lymph % (Auto) 17.0 L, [place] % (Auto) 17.6 H, Eos % (Auto) 0.0, Baso % (Auto) 0.8, Absolute Neuts (auto) 3.1, Absolute Lymphs (auto) 0.88, Nucleated RBC % 0.8 Micro: Microbiology 07/08/21 17:25 Blood Culture (Wb) - Anticubital Right Blood Culture - Preliminary No growth in 48 hours. 07/08/21 17:20 Blood Culture (Wb) - Right Hand Blood Culture - Preliminary No growth in 48 hours. 07/08/21 20:11 Urine, Clean Catch Urine Culture - Final Escherichia coli 07/09/21 12:50 Urine, Random Legionella Antigen - Final 07/09/21 12:50 Urine, Random Streptococcus pneumoniae Antigen (M - Final 07/08/21 17:29 Mucosa - Nose Respiratory Panel (PCR) - Final 07/08/21 17:35 Stool Stool Occult Blood (LADARIUS) - Final Occult Blood Positive Radiography Diagnostic Testing: Radiology Impression Venous Doppler Study 07/10/21 17:36 Interpretation Summary No evidence for acute deep venous thrombosis bilateral lower extremities with patent and compressible bilateral great saphenous veins. Ordering Physician: Familia Roberts Performed By: Carlyle Cox, RVT Physical Exam Narrative Physical Examination: General: Awake, alert, oriented x 3 and cooperative, seated upright in PCU bed in no apparent distress, improved appearance. Skin: Normal color, normal turgor, no icterus, no cyanosis. HEENT: AT/NC, EOMI, PERRLA, mildly dry MM. Lungs: Very distant breath sounds, bilateral bases decreased, mildly rhonchorous bases, decreased effort, no wheezing. Heart: Regular rate and rhythm; no gallop, rub audible. Abdomen: Soft, morbidly obese, mild discomfort to epigastric palpation, difficult to assess distention given habitus, distant hyperactive bowel sounds. Extremities: No cyanosis, no clubbing, chronic bilateral lower extremity edema, not markedly pitting, right greater than left which is chronic and unchanged. Neurological: Patient awake, alert, oriented as noted, cognitive function intact; pupils equally reactive to light and accommodation, cranial nerves II- XII grossly normal, moving all 4 extremities, no focal deficits, strength moderately to severely global decrease secondary to acute presentation and underlying metastatic cancer history. Psychiatric: Affect appears mildly flat otherwise no acute distress, no acute evidence of depressive or anxiety feelings. Assessment & Plan Assessment/Plan (1) GIB (gastrointestinal bleeding): QUALIFIERS: GI bleed type/associated pathology: unspecified gas trointestinal hemorrhage type Qualified Code(s): K92.2 - Gastrointestinal hemorrhage, unspecified (2) Hospital-acquired pneumonia: PLAN: The patient is a 56 y/o F w/ PMHx: Metastatic breast cancer to bone, Hypothyroidism, Morbid Obesity, Hx VTE w/ PE, Anxiety and Depression, recent outpatient treatment for PNA with cefdinir and azithromycin with outpatient CXR w/ PNA and cough with hypoxia with exertional dyspnea. #1. Acute GI Bleed w/ resultant Acute Blood Loss Anemia on Chronic with history of prior gastric ulcer: Admission Hgb 8.1, admitted to PCU, maintained on digestive fluids, patient's anticoagulant therapy with Eliquis discontinued, patient was not reversed upon admission, patient administered 2 unit PRBC administration with most recent repeat hemoglobin 9.2, maintained on IV PPI with consultation to gastroenterology with 07/09/2021 EGD with noted normal esophagus, significant red blood in the entire stomach with bleeding erosive gastropathy with oozing gastric ulcers with visible vessels and also with adherent clots treated with injection and heater probe with notable hemorrhagic gastropathy with a normal second portion of the duodenum w/ Protonix bolus with drip infusion ongoing x 2 days, octreotide bolus and infusion discontinued 07/10/2021 w/ NPO status. 07/11/21 Hgb 8.8. Repeat 07/11/21 EGD repeat with OA grad e C acute esophagitis, again red blood in the stomach with oozing gastric ulcers and adherent clot which was injected and treated with a heater probe with biopsies also obtained with transition allowance following intervention to clear liquid diet, administration also of sucralfate, readministration of octreotide bolus for day of EGD and continued Protonix infusion. #2. HCAP Pneumonia: CTPA with diffuse evidence of metastatic bone disease, no demonstrated PE or dissection, bilateral pneumonia with bilateral pleural effusions noted, treated outpatient with cefdinir and azithromycin, initially admitted and treated with IV Zosyn and IV vancomycin which was eventually discontinued however MRSA screen was performed and noted to be positive therefore IV vancomycin restarted, patient with some concern for earlobe swelling therefore IV Zosyn was discontinued and patient transitioned temporaril y to Levaquin however given #3 with sensitivity to Zosyn this was restarted and patient had no further concerns that this was responsible for her earlobe swelling. Respiratory panel negative. Urine antigens negative. Patient has been unable to give sputum culture. Blood culture x2 NGTD #3. Acute ESBL E. Coli Urinary Tract Infection: UA was mildly notable, urine culture sent and has returned with ESBL E. coli, sensitive to Zosyn therefore patient transitioned off of Levaquin back to Zosyn and had no further concerning side effects as initial 07/09/2021 family and patient concerns for mild earlobe swelling. Once appropriate patient is sensitive to oral Bactrim otherwise nitrofurantoin with all other agents are intravenous with several resistance patterns. #4. History of VTE with pulmonary emboli: Patient with history of pulmonary emboli on Eliquis therapy. Given patient presentation with GI bleed, Eliquis discontinued with CTPA upon presentation as noted with no obvious evidence of any pulmonary emboli, bilateral lower extremity duplex ultrasound with no acute clots however patient with significant EGD findings with ongoing bleeding therefore 07/11/2021 IVC filter placed per Dr. Roberts. #5. Metastatic breast cancer with metastases to bone: Patient notes outpatient planned upcoming bone scan, following with oncology, currently on immunotherapy, we will continue patient home oxycodone and long-acting morphine regimen however discussed at length potential need for hold if patient was hypotensive given acute presentation #1 with as needed breakthrough IV fentanyl if necessary. Mag and Phos requested with supplementation as needed. #6. Anxiety and depression: We will continue patient home sertraline and low- dose Ativan regimen with hold if BP significantly decreased. #7. Morbid Obesity: Weight loss and lifestyle changes encouraged. #8. Hypothyroidism: Continue home synthroid regimen. #9. GERD: We will maintain on IV PPI as noted above. #10. DVT prophylaxis: SCDs, holding patient home Eliquis regimen as noted above #1. 07/11/21 IVC filter placed. #11. CODE STATUS: DNR CCA, no intubation status.
[2021-07-12 06:32] LABS: Anisocytosis 2+; Polychromasia 1+
[2021-07-12 06:39] LABS: ALB/GLOB Ratio 0.3 RATIO (0.9-2.4); AST(SGOT) 23 U/L (15-37); Alanine Aminotransfer ALT/SGPT 9 U/L (13-56); Albumin, Serum 1.2 g/dL (3.2-5.0); Alkaline Phosphatase 120 U/L (45-117); Anion Gap 8 (5-15); BUN 12 mg/dL (7-18); BUN/Creat Ratio 11.9 RATIO (10-20); Calcium,Total 7.1 mg/dL (8.5-10.1); Chloride 109 mmol/L (98-107); Creatinine, Serum 1.01 mg/dL (0.55-1.02); EST Glomerular Filtration Rate 60 mL/min (>60); Est Glom Filt Rate - Afr Amer 73 mL/min (>60); Estimated Creatinine Clearance 62.74 ml/min; Globulin 3.9 g/dL (2.2-4.2); Glucose 150 mg/dL (74-106); Potassium 3.3 mmol/L (3.5-5.1); Protein, Total 5.1 g/dL (6.4-8.2); Sodium Level 138 mmol/L (136-145)
[2021-07-12 07:40] LABS: Vancomycin, Random Level 23.4 ug/mL (0.0-15.0)
--- NOTE | 2021-07-12 07:49 | PCM.RX.CS ---
Consult Pharmacy has been consulted to manage selected antiobiotic: Vancomycin Type of Consult: Follow-up Labs: Sodium 138 mmol/L (136-145) 07/12/21 06:05 Potassium 3.3 mmol/L (3.5-5.1) L 07/12/21 06:05 Chloride 109 mmol/L (98-107) H 07/12/21 06:05 Carbon Dioxide 21.0 mmol/L (21.0-32.0) 07/12/21 06:05 Anion Gap 8 (5-15) 07/12/21 06:05 BUN 12 mg/dL (7-18) 07/12/21 06:05 Creatinine 1.01 mg/dL (0.55-1.02) 07/12/21 06:05 Est GFR (MDRD) Af Amer 73 mL/min (>60) 07/12/21 06:05 Est GFR (MDRD) Non-Af 60 mL/min (>60) 07/12/21 06:05 BUN/Creatinine Ratio 11.9 RATIO (10-20) 07/12/21 06:05 Glucose 150 mg/dL (74-106) H 07/12/21 06:05 Vancomycin Trough 27.4 ug/mL (5.0-15.0) H 07/11/21 07:28 Random Vancomycin 23.4 ug/mL (0.0-15.0) H 07/12/21 06:05 Microbiology: Microbiology 07/08/21 17:25 Blood Culture (Wb) - Anticubital Right Blood Culture - Preliminary No growth in 48 hours. 07/08/21 17:20 Blood Culture (Wb) - Right Hand Blood Culture - Preliminary No growth in 48 hours. 07/08/21 20:11 Urine, Clean Catch Urine Culture - Final Escherichia coli 07/09/21 12:50 Urine, Random Legionella Antigen - Final 07/09/21 12:50 Urine, Random Streptococcus pneumoniae Antigen (M - Final 07/08/21 17:29 Mucosa - Nose Respiratory Panel (PCR) - Final 07/08/21 17:35 Stool Stool Occult Blood (LADARIUS) - Final Occult Blood Positive Goal Trough: 15-20 mcg/mL Pharmacy Plan for Drug Dosing: VANCOMYCIN LEVEL RECEIVED Current Vancomycin Dose: on hold due to elevated trough (was 2000mg q12) Number of Doses Received: Vancomycin Level: 23.4 (random level) Hours Since Last Dose: 35 Renal Function: SrCr 1.01 Renal Function Trend: SrCr is increasing (was 0.75) Lab/Micro: Vancomycin Plan/Comments: recommend continuing to hold dose due to elevated trough. Pending Level: random level 07/13/21 at 0600 Pharmacy Service will continue to monitor and adjust dosing as required. Follow-Up Labs: Trough Vancomycin - 07/13/21 at 0600 (random level)
[2021-07-12 08:00] VITALS: BP 99/59; PULSE 81; RESP 18; TEMP 36.4; O2SAT 97
[2021-07-12] MEDS: Sertraline 50 MG Tablet 75 MG PO (08:57)
[2021-07-12] MEDS: morphine SR 15 MG Tablet PO (08:57)
[2021-07-12] MEDS: Folic Acid 1 MG Tablet PO (08:57)
[2021-07-12 09:56] VITALS: O2SAT 97
[2021-07-12 10:30] VITALS: BP 114/64; PULSE 81; RESP 16; TEMP 36.4; O2SAT 95
[2021-07-12] MEDS: LORazepam 1 MG Tablet PO (10:34)
--- NOTE | 2021-07-12 10:47 | CASEMGMT ---
SARAH called [facility] and spoke with . She said Hospice papers were signed. According to the notes she is reading equipment needs set up in the home. took SARAH's name and number. Someone will call SARAH when equipment is in the home or a time when it will be in the home. Brooke Escobar BIOMEDICAL ENGINEER NITIN
--- NOTE | 2021-07-12 11:41 | PCM.CONS.GEN ---
HPI Consult Data Date of Consult: 07/12/21 HPI Narrative HPI Narrative: BERTA GUERRA, is a 56 F who presents with respiratory distress; no fevers; denies any symptoms. CXR reviewed. Currently on IV Vanco+Zosyn [facility] Medical History Breast cancer Breast cancer metastasized to bone Hypothyroid Home Medications lorazepam 1 mg PO BID PRN 07/08/21 [History Last Taken Unknown] morphine 30 mg PO BID 07/08/21 [History Last Taken Unknown] ondansetron 8 mg PO Q6H PRN PRN 07/08/21 [History Last Taken Unknown] oxycodone 5 mg PO Q4H PRN PRN 07/08/21 [History Last Taken Unknown] apixaban [Eliquis] 2.5 mg PO BID 07/09/21 [History Last Taken Unknown] folic acid 1 mg PO DAILY 07/09/21 [History Last Taken Unknown] gabapentin 200 mg PO TID 07/09/21 [History Last Taken Unknown] levothyroxine 75 mcg PO DAILY 07/09/21 [History Last Taken Unknown] melatonin 10 mg PO QHS 07/09/21 [History Last Taken Unknown] omeprazole 20 mg PO DAILY 07/09/21 [History Last Taken Unknown] prednisone 10 mg PO DAILY 07/09/21 [History Last Taken Unknown] sertraline [Zoloft] 75 mg PO DAILY 07/09/21 [History Last Taken Unknown] Allergy/AdvReac Type Severity Reaction Status Date / Time meperidine [From Demerol] AdvReac Vomiting Verified 07/08/21 15:59 Social History Smoking Status: Never smoker Lab / Micro Data Result Diagrams: 07/12/21 06:05 07/12/21 06:05 Labs: Laboratory Results - last 24 hr 07/08/21 17:40: Crossmatch See Detail 07/11/21 19:30: Random Vancomycin 28.2 H 07/12/21 06:05: WBC 5.2, RBC 3.12 L, Hgb 8.7 L, Hct 28.9 L, MCV 92.6, MCH 27.9, MCHC 30.1 L D, RDW Std Deviation 67.4 H, RDW Coeff of Naveed 20.2 H, Plt Count 107 L, MPV 9.4, Immature Gran % (Auto) 3.900 H, Neut % (Auto) 60.7, Lymph % (Auto) 17.0 L, [place] % (Auto) 17.6 H, Eos % (Auto) 0.0, Baso % (Auto) 0.8, Absolute Neuts (auto) 3.1, Absolute Lymphs (auto) 0.88, Nucleated RBC % 0.8, Polychromasia 1+, Anisocytosis 2+ 07/12/21 06:05: Sodium 138, Potassium 3.3 L, Chloride 109 H, Carbon Dioxide 21.0, Anion Gap 8, BUN 12, Creatinine 1.01, Estim Creat Clear Calc 62.74, Est GFR (MDRD) Af Amer 73, Est GFR (MDRD) Non-Af 60, BUN/Creatinine Ratio 11.9, Glucose 150 H, Calcium 7.1 L, Total Bilirubin 0.40, AST 23, ALT 9 L, Alkaline Phosphatase 120 H, Total Protein 5.1 L, Albumin 1.2 L, Globulin 3.9, Albumin/Globulin Ratio 0.3 L 07/12/21 06:05: Random Vancomycin 23.4 H Micro: Microbiology 07/08/21 17:25 Blood Culture (Wb) - Anticubital Right Blood Culture - Preliminary No growth in 48 hours. 07/08/21 17:20 Blood Culture (Wb) - Right Hand Blood Culture - Preliminary No growth in 48 hours. 07/08/21 20:11 Urine, Clean Catch Urine Culture - Final Escherichia coli ESBL + E.coli in urine but no active symptoms to merit treatment ( ie. asymptomatic bacteriuria); will treat CAP with oral Levofloxacin X 5 days.
--- NOTE | 2021-07-12 12:34 | CASEMGMT ---
Epifanio from Hospice called and told SW that they do not provide Purewick system. Epifanio said patient's daughter called and said that the hospital told her Hospice would provide this for patient. SARAH told him that is not accurate. SW told him that it was explained to patient's daughter she would need to call Hospice and ask. SW asked him to please call patient's daughter and let her know that Hospice does not provide a Purewick system. Epifanio asked about the discharge plan. SW told him SW spoke with Nancy gold and she said that someone would call SW when the equipment was all set up. SW told him she would then be discharged. Brooke Escobar MSW NITIN
--- NOTE | 2021-07-12 14:04 | DCINST_ITS ---
Discharge Instructions Diet Discharge Diet: [place] diet Activity Discharge Activity: Return to Normal Activity Dressing / Incision Call your doctor if you observe: Shortness of breath, Swelling in the ankles and Chest pain Follow Up Care Test Results: Test results from this visit will be discussed in further detail at your follow-up appointment, if applicable. Discharge Plan Admission Admit Date/Time: 07/08/21 23:21 Primary Reason for Your Visit: HCAP, UTI Attending Provider: Brenda rBady Primary Care Provider: Bhavin Fox Consulting Providers: Familia Roberts Marc Discharge Orders/Prescriptions Prescriptions: New sucralfate 1 gram Tablet 1 g PO 1HR_ACHS Qty: 120 RF: 0 levofloxacin 500 mg Tablet 500 mg PO 0600 Qty: 5 RF: 0 Biotene Dry Mouth Oral Rinse Mouthwash 15 ml mucous membrane 5X/DAY PRN (Reason: Dry Mouth) Qty: 0 RF: 0 pantoprazole 40 mg tablet,delayed release (DR/EC) 40 mg PO BID Qty: 60 RF: 0 Continued ondansetron 8 mg tablet,disintegrating 8 mg PO Q6H PRN PRN (Reason: Nausea) RF: 0 morphine 15 mg tablet extended release 30 mg PO BID RF: 0 lorazepam 1 mg tablet 1 mg PO BID PRN (Reason: Anxiety) RF: 0 oxycodone 5 mg tablet 5 mg PO Q4H PRN PRN (Reason: Pain) RF: 0 sertraline [Zoloft] 25 mg tablet 75 mg PO DAILY RF: 0 prednisone 10 mg Tablet 10 mg PO DAILY RF: 0 levothyroxine 75 mcg Tablet 75 mcg PO DAILY RF: 0 folic acid 1 mg Tablet 1 mg PO DAILY RF: 0 gabapentin 100 mg Capsule 200 mg PO TID RF: 0 omeprazole 20 mg Tablet,Delayed Release (Dr/Ec) 20 mg PO DAILY RF: 0 melatonin 10 mg Tablet 10 mg PO QHS RF: 0 Eliquis 2.5 mg Tablet 2.5 mg PO BID RF: 0 Referrals / Follow Up: Bhavin Fox MD [Primary Care Provider] - Disposition Disposition (needs filled in before D/C Order can be placed): Hospice in Home
--- NOTE | 2021-07-12 14:40 | CASEMGMT ---
SARAH called Hospice and spoke with Mouna to see if patient's equipment has been delivered. Mouna said Caryn will call the company to check and she will get back to SARAH. Brooke Escobar [employer]
--- NOTE | 2021-07-12 14:48 | CASEMGMT ---
SARAH received a call from Mouna at Hospice and all of the equipment has been delivered to patient's home. SARAH let RN know patient's equipment has all been delivered. Plan: d/c home on Hospice. Boroke TAVERAS
--- NOTE | 2021-07-12 14:55 | DS.PCM_ITS ---
Documented by User: JOSE Lyles 07/12/21 15:35 Providers Date of Admission: 07/08/21 Primary Care Physician: Dr. Bhavin Fox MD Consultations 07/09/21 09:08 Consult: Gastroenterology Routine Consulting Provider: [facility] Reason for Consult: GI Bleed, anemia EMERGENT Consult: No MD Notified: Yes Date Notified: 07/09/21 Time Notified: 09:09 Method of Notification: Text 07/10/21 14:46 Consult: Vascular Surgery Routine Consulting Provider: Familia Roberts Reason for Consult: Information for patient/family IVC filter, admit w/ GI bleed, PE hx EMERGENT Consult: No MD Notified: Yes Date Notified: 07/10/21 Time Notified: 14:46 Method of Notification: called 07/11/21 17:53 Consult: Infectious Disease Routine Consulting Provider: Young Li Reason for Consult: UTI ESBL, PNA EMERGENT Consult: No MD Notified: Yes Date Notified: 07/11/21 Time Notified: 18:11 Method of Notification: Answering Service Reason For Visit: HOSPITAL ACQUIRED PNEUMONIA Diagnosis Discharge Diagnosis (1) GIB (gastrointestinal bleeding): Status: Acute Code(s): K92.2 - Gastrointestinal hemorrhage, unspecified Qualifiers: GI bleed type/associated pathology: unspecified gastrointestinal hemorrhage type Qualified Code(s): K92.2 - Gastrointestinal hemorrhage, unspecified (2) Hospital-acquired pneumonia: Status: Acute Code(s): J18.9 - Pneumonia, unspecified organism; Y95 - Nosocomial condition Medications at Discharge Home Medications lorazepam 1 mg PO BID PRN 07/08/21 morphine 30 mg PO BID 07/08/21 ondansetron 8 mg PO Q6H PRN PRN 07/08/21 oxycodone 5 mg PO Q4H PRN PRN 07/08/21 folic acid 1 mg PO DAILY 07/09/21 gabapentin 200 mg PO TID 07/09/21 levothyroxine 75 mcg PO DAILY 07/09/21 melatonin 10 mg PO QHS 07/09/21 prednisone 10 mg PO DAILY 07/09/21 sertraline [Zoloft] 75 mg PO DAILY 07/09/21 levofloxacin 500 mg PO 0600 #5 tab 07/12/21 pantoprazole 40 mg PO BID #60 tab 07/12/21 saliva substitute combo no.9 [Biotene Dry Mouth Oral Rinse] 15 ml MUCOUS MEMBRANE 5X/DAY PRN #0 ml 07/12/21 sucralfate 1 g PO 1HR_ACHS #120 tab 07/12/21 Hospital Course Operations None Procedures EGD Summary of Care Provided Minutes Spent on Discharge: 35 Hospital Course: Patient is a 56-year-old female who originally presented with GI bleeding and pneumonia. Patient underwent EGD with Dr. Patel which demonstrated erosive gastropathy as well as oozing gastric ulcers which were treated with heater probe. Patient was also noted to have a urinary tract infection due to ESBL E. coli. Patient was seen also by infectious disease while she was admitted who recommend patient be discharged on p.o. Levaquin to treat both the urinary tract infection and pneumonia. Patient also received 2 units packed red blood cells during admission due to low hemoglobin from GI bleed. Due to GI bleed and patient's history of pulmonary embolisms patient underwent IVC filter placement with Dr. Roberts. patient will be discharged home with hospice. Physical Exam Const alert, oriented x3 and no apparent distress General Appearance: cooperative HEENT normocephalic and head/scalp atraumatic Eyes conjunctivae normal and no scleral icterus Neck supple General: trachea midline Resp normal respiratory effort Effort and Inspection: able to speak in complete sentences and symmetric chest movement Auscultation: wheezes expiratory wheezes and throughout Cardio regular rate, regular rhythm, S1 normal heart sound, S2 normal heart sound and peripheral pulses 2+ throughout GI normal to inspection, nondistended, normoactive bowel sounds, soft to palpation and non-tender Extremity normal capillary refill Skin skin turgor normal General Skin Exam: no breakdown Lesions: no lesions Rashes: no rashes Neuro oriented x3, moves all extremities, no focal motor deficits and no sensory deficits noted Psych affect normal Appearance: appropriate Weight / BMI Weight Weight: 274 lb 14.663 oz Body Mass Index (BMI) 41.8 ABG / Lab / Microbiology Data Result Diagrams: 07/12/21 06:05 07/12/21 06:05 Laboratory: Laboratory Results - last 24 hr 07/08/21 17:40: Crossmatch See Detail 07/11/21 19:30: Random Vancomycin 28.2 H 07/12/21 06:05: WBC 5.2, RBC 3.12 L, Hgb 8.7 L, Hct 28.9 L, MCV 92.6, MCH 27.9, MCHC 30.1 L D, RDW Std Deviation 67.4 H, RDW Coeff of Naveed 20.2 H, Plt Count 107 L, MPV 9.4, Immature Gran % (Auto) 3.900 H, Neut % (Auto) 60.7, Lymph % (Auto) 17.0 L, [place] % (Auto) 17.6 H, Eos % (Auto) 0.0, Baso % (Auto) 0.8, Absolute Neuts (auto) 3.1, Absolute Lymphs (auto) 0.88, Nucleated RBC % 0.8, Polychromasia 1+, Anisocytosis 2+ 07/12/21 06:05: Sodium 138, Potassium 3.3 L, Chloride 109 H, Carbon Dioxide 21. 0, Anion Gap 8, BUN 12, Creatinine 1.01, Estim Creat Clear Calc 62.74, Est GFR (MDRD) Af Amer 73, Est GFR (MDRD) Non-Af 60, BUN/Creatinine Ratio 11.9, Glucose 150 H, Calcium 7.1 L, Total Bilirubin 0.40, AST 23, ALT 9 L, Alkaline Phosphatase 120 H, Total Protein 5.1 L, Albumin 1.2 L, Globulin 3.9, Albumin/Globulin Ratio 0.3 L 07/12/21 06:05: Random Vancomycin 23.4 H Microbiology: Microbiology 07/08/21 17:25 Blood Culture (Wb) - Anticubital Right Blood Culture - Preliminary No growth in 48 hours. 07/08/21 17:20 Blood Culture (Wb) - Right Hand Blood Culture - Preliminary No growth in 48 hours. 07/08/21 20:11 Urine, Clean Catch Urine Culture - Final Escherichia coli 07/09/21 12:50 Urine, Random Legionella Antigen - Final 07/09/21 12:50 Urine, Random Streptococcus pneumoniae Antigen (M - Final 07/08/21 17:29 Mucosa - Nose Respiratory Panel (PCR) - Final 07/08/21 17:35 Stool Stool Occult Blood (LADARIUS) - Final Occult Blood Positive D/C Instructions Discharge Diet: [place] diet Call your doctor if you observe: Shortness of breath, Swelling in the ankles and Chest pain Meaningful Use Info Meaningful Use Diagnoses (Choose all that apply): None applicable Discharge Plan Admission Admit Date/Time: 07/08/21 23:21 Primary Reason for Your Visit: HCAP, UTI Attending Provider: Brenda Brady Primary Care Provider: Bhavin Fox Consulting Providers: Familia Roberts Marc Discharge Orders/Prescriptions Prescriptions: New sucralfate 1 gram Tablet 1 g PO 1HR_ACHS Qty: 120 RF: 0 levofloxacin 500 mg Tablet 500 mg PO 0600 Qty: 5 RF: 0 Biotene Dry Mouth Oral Rinse Mouthwash 15 ml mucous membrane 5X/DAY PRN (Reason: Dry Mouth) Qty: 0 RF: 0 pantoprazole 40 mg tablet,delayed release (DR/EC) 40 mg PO BID Qty: 60 RF: 0 Continued ondansetron 8 mg tablet,disintegrating 8 mg PO Q6H PRN PRN (Reason: Nausea) RF: 0 morphine 15 mg tablet extended release 30 mg PO BID RF: 0 lorazepam 1 mg tablet 1 mg PO BID PRN (Reason: Anxiety) RF: 0 oxycodone 5 mg tablet 5 mg PO Q4H PRN PRN (Reason: Pain) RF: 0 sertraline [Zoloft] 25 mg tablet 75 mg PO DAILY RF: 0 prednisone 10 mg Tablet 10 mg PO DAILY RF: 0 levothyroxine 75 mcg Tablet 75 mcg PO DAILY RF: 0 folic acid 1 mg Tablet 1 mg PO DAILY RF: 0 gabapentin 100 mg Capsule 200 mg PO TID RF: 0 melatonin 10 mg Tablet 10 mg PO QHS RF: 0 Discontinued omeprazole 20 mg Tablet,Delayed Release (Dr/Ec) 20 mg PO DAILY RF: 0 Eliquis 2.5 mg Tablet 2.5 mg PO BID RF: 0 Referrals / Follow Up: Bhavin Fox MD [Primary Care Provider] - Within 2 Weeks Disposition Disposition (needs filled in before D/C Order can be placed): Hospice in Home Documented by User: Dr. Brenda Brady MD 07/12/21 16:40 Providers Date of Admission: 07/08/21 Reason For Visit: HOSPITAL ACQUIRED PNEUMONIA Medications at Discharge Home Medications lorazepam 1 mg PO BID PRN 07/08/21 morphine 30 mg PO BID 07/08/21 ondansetron 8 mg PO Q6H PRN PRN 07/08/21 oxycodone 5 mg PO Q4H PRN PRN 07/08/21 folic acid 1 mg PO DAILY 07/09/21 gabapentin 200 mg PO TID 07/09/21 levothyroxine 75 mcg PO DAILY 07/09/21 melatonin 10 mg PO QHS 07/09/21 prednisone 10 mg PO DAILY 07/09/21 sertraline [Zoloft] 75 mg PO DAILY 07/09/21 levofloxacin 500 mg PO 0600 #5 tab 07/12/21 pantoprazole 40 mg PO BID #60 tab 07/12/21 saliva substitute combo no.9 [Biotene Dry Mouth Oral Rinse] 15 ml MUCOUS MEMBRANE 5X/DAY PRN #0 ml 07/12/21 sucralfate 1 g PO 1HR_ACHS #120 tab 07/12/21 ABG / Lab / Microbiology Data Result Diagrams: 07/12/21 06:05 07/12/21 06:05 Discharge Plan Admission Admit Date/Time: 07/08/21 23:21 Primary Reason for Your Visit: HCAP, UTI Attending Provider: Brenda Brady Primary Care Provider: Bhavin Fox Consulting Providers: Familia Roberts ; Young Li Discharge Orders/Prescriptions Prescriptions: New sucralfate 1 gram Tablet 1 g PO 1HR_ACHS Qty: 120 RF: 0 levofloxacin 500 mg Tablet 500 mg PO 0600 Qty: 5 RF: 0 Biotene Dry Mouth Oral Rinse Mouthwash 15 ml mucous membrane 5X/DAY PRN (Reason: Dry Mouth) Qty: 0 RF: 0 pantoprazole 40 mg tablet,delayed release (DR/EC) 40 mg PO BID Qty: 60 RF: 0 Continued ondansetron 8 mg tablet,disintegrating 8 mg PO Q6H PRN PRN (Reason: Nausea) RF: 0 morphine 15 mg tablet extended release 30 mg PO BID RF: 0 lorazepam 1 mg tablet 1 mg PO BID PRN (Reason: Anxiety) RF: 0 oxycodone 5 mg tablet 5 mg PO Q4H PRN PRN (Reason: Pain) RF: 0 sertraline [Zoloft] 25 mg tablet 75 mg PO DAILY RF: 0 prednisone 10 mg Tablet 10 mg PO DAILY RF: 0 levothyroxine 75 mcg Tablet 75 mcg PO DAILY RF: 0 folic acid 1 mg Tablet 1 mg PO DAILY RF: 0 gabapentin 100 mg Capsule 200 mg PO TID RF: 0 melatonin 10 mg Tablet 10 mg PO QHS RF: 0 Discontinued omeprazole 20 mg Tablet,Delayed Release (Dr/Ec) 20 mg PO DAILY RF: 0 Eliquis 2.5 mg Tablet 2.5 mg PO BID RF: 0 Referrals / Follow Up: Bhavin Fox MD [Primary Care Provider] - Within 2 Weeks Disposition Disposition (needs filled in before D/C Order can be placed): Hospice in Home
[2021-07-12 15:15] VITALS: O2SAT 90
[2021-07-12] MEDS: oxyCODONE 5 MG Tablet PO (15:23)
[2021-07-12 15:30] VITALS: BP 96/64; PULSE 78; RESP 16; TEMP 36.6; O2SAT 100
[2021-07-12] MEDS: 0.9% Saline Lock 10 ML Syringe IV (15:34)
--- NOTE | 2021-07-12 15:42 | CASEMGMT ---
SARAH faxed d/c instructions to Hospice. Brooke Escobar [employer] NITIN
== END 2021-07-12 15:43 | disposition hospice, home (50) | DRG 377 ==
LOC: ED 17:42 → PCU 23:24
PROVIDERS: Internal Medicine Gastroenterology; Admitting Provider Family Medicine; Emergency Provider Student in an Organized Health Care Education/Training Program; PCP Family Medicine; Visit Provider Family Medicine
PROC: 0W3P8ZZ Control Bleeding in Gastrointestinal Tract, Via Natural or Artificial Opening Endoscopic (ICD-10-PCS; principal; 2021-07-11 11:40)
DX: K25.4 Chronic or unspecified gastric ulcer with hemorrhage (principal); J18.9 Pneumonia, unspecified organism; C79.51 Secondary malignant neoplasm of bone; N39.0 Urinary tract infection, site not specified; Z68.41 Body mass index [BMI] 40.0-44.9, adult; D62 Acute posthemorrhagic anemia; Z16.12 Extended spectrum beta lactamase (ESBL) resistance; J90 Pleural effusion, not elsewhere classified; Y95 Nosocomial condition; G89.3 Neoplasm related pain (acute) (chronic); C50.919 Malignant neoplasm of unspecified site of unspecified female breast; E66.01 Morbid (severe) obesity due to excess calories; F41.9 Anxiety disorder, unspecified; F32.A Depression, unspecified; E03.9 Hypothyroidism, unspecified; K21.00 Gastro-esophageal reflux disease with esophagitis, without bleeding; B96.20 Unspecified Escherichia coli [E. coli] as the cause of diseases classified elsewhere; Z66 Do not resuscitate; Z86.711 Personal history of pulmonary embolism; Z79.899 Other long term (current) drug therapy; Z79.01 Long term (current) use of anticoagulants; Z79.890 Hormone replacement therapy; Z74.01 Bed confinement status
CPT/HCPCS: 36415; 37191; 71045; 71275; 76937; 80048; 80053; 80202; 81001; 82274; 83605; 83735; 83880; 84100; 84484; 85014; 85018; 85025; 85610; 85730; 86850; 86900; 86901; 86920; 87040; 87077; 87086; 87088; 87186; 87449; 87633; 87635; 87641; 88305; 88342; 93005; 93970; 94640; 94760; 97802; 97803; 99285; J7030; J7040; P9016; Q9967; U0005; A4216; C1769; C1880; J1940; J2354; J2405; J3490; U0003